=== PATIENT | female | born 1980 | race Caucasian/White ===

== ENCOUNTER 2017-04-26 13:19 | Inpatient (IN) | payer BC ==
[2017-04-26] MEDS ORDERED: Ondansetron 4 MG/2 ML SDV IVPUSH PRN ×2 (13:54→20:48)
[2017-04-26] MEDS ORDERED: Sodium Chloride 0.9% 10 ML Syringe FLUSH PRN (13:54)
[2017-04-26] MEDS: Lactated Ringers 1,000 ML IV SCH ×4 (14:22→19:29)
--- NOTE | 2017-04-26 15:00 | PCM.SN ---
- Free Text/Narrative Note: 1500 S:
[2017-04-26] MEDS ORDERED: Acetaminophen 325 MG Tab PO PRN ×2 (16:58→21:27)
[2017-04-26] MEDS ORDERED: Calcium Carbonate 500 MG Tab.Chew PO PRN (17:02)
[2017-04-26] MEDS ORDERED: Metoclopramide 10 MG/2 ML SDV IVPUSH ONE (18:48)
[2017-04-26] MEDS ORDERED: Citric Acid/Sodium Citrate Solution 30 ML Cup PO ONE (18:48)
[2017-04-26] MEDS ORDERED: ceFAZolin 2 GM in Premix Bag 1 BAG IV ONE (18:48)
--- NOTE | 2017-04-26 18:59 | PCM.LDHP ---
L&D History of Present Illness - General Date of Service: 04/26/17 Admit Problem/Dx: Patient Status Order with Admit Dx/Problem 04/26/17 13:54 Patient Status [ADT] Routine 04/26/17 18:48 Patient Status [ADT] Routine Admission Diagnosis/Problem Admission Diagnosis/Problem Source of Information: Patient History Limitations: Reports: No Limitations - History of Present Illness Introduction:: Patient is a 36 y/o at 38 0/7 wks who presented to L&D with concerns of labor. Was seen in clinic earlier today due to complaints of diarrhea and abdominal pain. She also reported contractions which were painful. In clinic at 1330 was only found to be 1 cm dilated and 60% effaced, similar to previous clinic exam. Given degree of pain she was asked to present to L&D for further monitoring Pain Score: 8 - Related Data Allergies/Adverse Reactions: Allergies Allergy/AdvReac Type Severity Reaction Status Date / Time acetaminophen Allergy Hives Verified 04/26/17 13:54 [From Darvocet-N] hydrocodone Allergy Hives Verified 04/26/17 13:54 meperidine HCl [From Demerol] Allergy Hives Verified 04/26/17 13:54 propoxyphene napsylate Allergy Hives Verified 04/26/17 13:54 [From Darvocet-N] Home Medications: Home Meds Budesonide [Pulmicort] 3 puff INH DAILY 02/28/15 [History] Doxycycline [Vibramycin] 100 mg PO Q12HR #16 cap 02/28/15 [Rx] Past Medical History Respiratory History: Reports: Asthma 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: Reports: Polycystic 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, , Spontaneous : 4 Para: 1 LMP (Approximate): - Past Surgical History HEENT Surgical History: Reports: Tonsillectomy GI Surgical History: Reports: Appendectomy Female Surgical History: Reports: Breast Biopsy, Section, D&C, Other (See Below) (Diagnostic laparoscopy) Social & Family History - Family History Family Medical History: Noncontributory - Tobacco Use Smoking Status *Q: Never Smoker - Alcohol Use Alcohol Use History: No - Recreational Drug Use Recreational Drug Use: No H&P Review of Systems - Review of Systems: Review Of Systems: See Below General: Reports: No Symptoms Pulmonary: Reports: No Symptoms Cardiovascular: Reports: No Symptoms Gastrointestinal: Reports: Abdominal Pain, Diarrhea Genitourinary: Reports: No Symptoms Musculoskeletal: Reports: No Symptoms L&D Exam - Exam Exam: See Below - Vital Signs Vital Signs: Last Vital Signs Temp 36.8 C 04/26/17 16:36 Pulse 86 04/26/17 16:36 Resp 16 04/26/17 16:36 BP 116/71 04/26/17 16:36 Pulse Ox Weight: 74.843 kg - OB Specific Contraction Intensity: Moderate Movement: Active Heart Tones: Present Heart Tones per Min: 135 Heart Rate (FHR) Variability: Moderate (6-25 bmp) Presentation: Vertex - Mahan Score Mahan Score Cervix Position: Midposition Mahan Score Consistency: Soft Mahan Score Effacement: 51-70% Mahan Score Dilation: 1-2 cm Mahan Score 's Station: -2 Mahan Score Total: 7 - Exam General: Alert, Oriented, Cooperative Lungs: Clear to Auscultation, Normal Respiratory Effort Cardiovascular: Regular Rate, Regular Rhythm GI/Abdominal Exam: Soft, Non-Tender Genitourinary: Normal external exam Extremities: Normal Inspection Skin: Warm, Dry, Intact - Problem List (1) 38 weeks gestation of SNOMED Code(s): 21511716 ICD Code: Z3A.38 - 38 WEEKS GESTATION OF Status: Acute Current Visit: Yes (2) History of SNOMED Code(s): 347637298 ICD Code: Z98.891 - HISTORY OF UTERINE SCAR FROM PREVIOUS SURGERY Status: Acute Current Visit: Yes (3) Normal labor SNOMED Code(s): 32251904 ICD Code: O80 - ENCOUNTER FOR FULL-TERM UNCOMPLICATED DELIVERY; Z37.9 - OUTCOME OF DELIVERY, UNSPECIFIED Status: Acute Current Visit: Yes Problem List Initiated/Reviewed/Updated: Yes Orders Last 24hrs: Active Orders 24 hr Category Date Time Status Patient Status [ADT] Routine ADT 04/26/17 13:54 Active Patient Status [ADT] Routine ADT 04/26/17 18:48 Ordered Communication Order [RC] ROUTINE Care 04/26/17 18:48 Ordered Heart Tones [RC] PER UNIT ROUTINE Care 04/26/17 18:48 Ordered Non Stress Test [RC] PER UNIT ROUTINE Care 04/26/17 13:54 Active Peripheral IV Care [RC] . DIRECTED Care 04/26/17 13:56 Active Procedure Site Prep Instruct [RC] ASDIRECTED Care 04/26/17 18:48 Ordered Verify Patient Consent Obtain [RC] PER UNIT ROUTINE Care 04/26/17 18:48 Ordered Vital Signs [RC] PER UNIT ROUTINE Care 04/26/17 13:54 Active Vital Signs [RC] PFP Care 04/26/17 18:48 Ordered Nothing Per Oral Diet [DIET] Diet 04/26/17 Dinner Ordered CBC W/O DIFF,HEMOGRAM [HEME] Stat Lab 04/26/17 18:48 Ordered TYPE AND SCREEN [BBK] Routine Lab 04/26/17 18:48 Ordered Acetaminophen [Tylenol] Med 04/26/17 16:58 Active 650 mg PO Q6H PRN Calcium Carbonate [Tums] Med 04/26/17 17:02 Active 500 mg PO Q2HR PRN Lactated Ringers [Ringers, Lactated] 1,000 ml Med 04/26/17 14:00 Active IV .BOLUS Ondansetron [Zofran] Med 04/26/17 13:54 Active 4 mg IVPUSH Q4H PRN Oxytocin/Lactated Ringers [Pitocin in LR 10 Units/1,000 Med 04/26/17 19:00 Ordered ML] 10 unit in 1,000 ml IV ASDIRECTED Sodium Chloride 0.9% [Saline Flush] Med 04/26/17 13:54 Active 10 ml FLUSH ASDIRECTED PRN ceFAZolin [Ancef] 2 gm Med 04/26/17 18:48 Ordered Premix Bag 1 bag IV ONETIME Peripheral IV Insertion Adult [OM.PC] Urgent Oth 04/26/17 13:54 Ordered Schedule Procedure [COMM] Per Unit Routine Oth 04/26/17 18:48 Ordered Resuscitation Status Routine Resus Stat 04/26/17 13:54 Ordered Medication Orders Acetaminophen (Tylenol) 650 mg PO Q6H PRN PRN Reason: Pain Last Admin: 04/26/17 17:23 Dose: 650 mg Calcium Carbonate/Glycine (Tums) 500 mg PO Q2HR PRN PRN Reason: Indigestion Last Admin: 04/26/17 17:23 Dose: 500 mg Lactated Ringer's (Ringers, Lactated) 1,000 mls @ 500 mls/hr IV .BOLUS TAMIKO Last Admin: 04/26/17 18:49 Dose: 125 mls/hr Infusion: 04/26/17 18:49 Dose: 125 mls/hr Infusion: 04/26/17 15:39 Dose: 125 mls/hr Admin: 04/26/17 15:37 Dose: 500 mls/hr Infusion: 04/26/17 15:37 Dose: 500 mls/hr Admin: 04/26/17 14:22 Dose: 500 mls/hr Cefazolin Sodium/Dextrose 2 gm (/ Premix) 50 mls @ 100 mls/hr IV ONETIME ONE Stop: 04/26/17 19:17 Oxytocin/Lactated Ringer's (Pitocin In Lr 10 Units/1,000 Ml) 10 unit in 1,000 mls @ 100 mls/hr IV ASDIRECTED TAMIKO PRN Reason: Protocol Ondansetron HCl (Zofran) 4 mg IVPUSH Q4H PRN PRN Reason: Nausea/Vomiting Last Admin: 04/26/17 14:18 Dose: 4 mg Sodium Chloride (Saline Flush) 10 ml FLUSH ASDIRECTED PRN PRN Reason: Keep Vein Open Assessment/Plan Comment:: 36 y/o at 38 0/7 wks presents for concerns of labor/diarrhea. Given 2L of IVF and zofran. Repeat SVE done at 1630 and similar to clinic exam at 1330. Offered trial of tub, tylenol, and plan additional 1L of IVF. Will reassess in a few hours. At 1830 nursing noted contractions becoming more regular and patterned. Patient also with more pain. Exam done with small amount of change noted. Now 2 cm and 80% effaced. Offered and encouraged patient to consider trial of labor given last was for breech, but she declines. Prefers repeat c- section. Anesthesia and Peds notified. CBC and T&S. Consent reviewed and signed.
[2017-04-26] MEDS ORDERED: Oxytocin/Lactated Ringers 10 UNIT/1,000 ML BAG IV SCH (19:00)
--- NOTE | 2017-04-26 19:02 | PCM.OPNOTE ---
- General Post-Op/Procedure Note Date of Surgery/Procedure: 04/26/17 Operative Procedure(s): Repeat Findings: Minimal/moderate amount of scar tissue between the rectus muscle and fascia. Similar amount of scar tissue between the uterus and the bladder. Baby boy in vertex presentation with APGARS of 8 & 8. Weight of 7 lbs 0 oz. Normal appearance of the uterus, fallopian tubes, and ovaries. Pre Op Diagnosis: 38 weeks gestation. Hx of . Labor. Declines trial of labor after Post-Op Diagnosis: Same Anesthesia Technique: Spinal Primary Surgeon: Mirta Pedro Secondary Surgeon: Seamus Manuel Anesthesia Provider: Rufino Darby Reason Turntable Man Was Necessary: Retraction, visualization, speed/safety of procedure Pathology: Cord blood collected. Placenta discarded Fluid Replacement, Intraop: 1,200 Output, Urine Amount: 100 EBL in mLs: 700 Complications: None Condition: Good Free Text/Narrative:: The risks, benefits, indications, potential complications, and alternatives were explained to the patient and informed consent obtained. After induction of anesthesia, the patient was placed in a supine position and then draped and prepped in the usual sterile manner. A Pfannenstiel incision was made and carried down through the subcutaneous tissue to the fascia. Fascial incision was made and extended transversely. The fascia was from the underlying rectus tissue superiorly and inferiorly. The peritoneum was identified and entered. Peritoneal incision was extended longitudinally. The utero-vesical peritoneal reflection was incised transversely and the bladder flap was bluntly freed from the lower uterine segment. A low transverse uterine incision was made sharply with a scalpel and extended bluntly in a cephalocaudad direction. A baby boy was delivered from a vertex presentation with APGARS as above. After the umbilical cord was clamped and cut cord blood was obtained for evaluation. The placenta was removed intact and appeared normal. The uterus was exteriorized and cleared of clots. The uterine outline, tubes and ovaries appeared normal. The uterine incision was closed with running locked sutures of 0 Vicryl. Hemostasis was obtained with a second imbricating layer of 0 vicryl. The uterus was then placed back into the abdomen. The infracolic gutters were cleared of blood clots. The fascia was then reapproximated with running sutures of 0 Vicryl. The sucutaneous tissue was irrigated with sterile warm normal saline, hemostasis obtained with cautery. This layer was also closed with a running 0 vicryl. The skin was reapproximated with running Subcuticular 4-0 monocryl sutures. Instrument, sponge, and needle counts were correct prior the abdominal closure and at the conclusion of the case.
[2017-04-26] MEDS ORDERED: Pneumococcal Polyvalent-23 Vaccine 0.5 ML SDV SUBCUT ONE (19:12)
[2017-04-26] MEDS ORDERED: Morphine PF 10 MG/10 ML SDV ONE (19:15)
[2017-04-26] MEDS ORDERED: Oxytocin 10 Units/1 ML SDV ONE (19:15)
[2017-04-26] MEDS ORDERED: Ondansetron 4 MG/2 ML SDV ONE (19:15)
--- NOTE | 2017-04-26 19:18 | PCM.PREANE ---
Preanesthetic Assessment - Procedure Proposed Procedure: Repeat - Anesthesia/Transfusion/Family Hx Anesthesia History: Prior Anesthesia Reaction Type of Anesthesia Reaction: Excessive Nausea/Vomiting Family History of Anesthesia Reaction: No Transfusion History: No Prior Transfusion(s) Intubation History: Unknown - Review of Systems General: No Symptoms Pulmonary: Other (asthma ) Cardiovascular: No Symptoms Gastrointestinal: No Symptoms Neurological: No Symptoms Other: Reports: None - Physical Assessment NPO Status Date: 04/26/17 NPO Status Time: 08:00 Pulse: 86 Respiratory Rate: 16 Blood Pressure: 116/71 Temperature: 36.8 C Vital Signs: Last Vital Signs Temp 36.8 C 04/26/17 16:36 Pulse 86 04/26/17 16:36 Resp 16 04/26/17 16:36 BP 116/71 04/26/17 16:36 Pulse Ox Height: 1.63 m Weight: 74.843 kg ASA Class: 2 Mental Status: Alert & Oriented x3 Airway Class: Mallampati = 1 Dentition: Reports: Normal Dentition Thyro-Mental Finger Breadths: 3 Mouth Opening Finger Breadths: 3 ROM/Head Extension: Full Lungs: Clear to Auscultation, Normal Respiratory Effort Cardiovascular: Regular Rate, Regular Rhythm - Allergies Allergies/Adverse Reactions: Allergies Allergy/AdvReac Type Severity Reaction Status Date / Time acetaminophen Allergy Hives Verified 04/26/17 13:54 [From Darvocet-N] hydrocodone Allergy Hives Verified 04/26/17 13:54 meperidine HCl [From Demerol] Allergy Hives Verified 04/26/17 13:54 propoxyphene napsylate Allergy Hives Verified 04/26/17 13:54 [From Darvocet-N] - Blood Blood Available: No Product(s) Available: None - Anesthesia Plan Pre-Op Medication Ordered: None - Acknowledgements Anesthesia Type Planned: Spinal (with duramorph- patient agrees despite allergies ) Pt an Appropriate Candidate for the Planned Anesthesia: Yes Alternatives and Risks of Anesthesia Discussed w Pt/Guardian: Yes Pt/Guardian Understands and Agrees with Anesthesia Plan: Yes PreAnesthesia Questionnaire Respiratory History: Reports: Asthma 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, , Spontaneous Other OB/BYN History: D&C - Past Surgical History HEENT Surgical History: Reports: Tonsillectomy GI Surgical History: Reports: Appendectomy Female Surgical History: Reports: Breast Biopsy, Section, D&C, Other (See Below) (Diagnostic laparoscopy) - SUBSTANCE USE Smoking Status *Q: Never Smoker Tobacco Use Within Last Twelve Months: No Second Hand Smoke Exposure: No Recreational Drug Use History: No - HOME MEDS Home Medications: Home Meds Budesonide [Pulmicort] 3 puff INH DAILY 02/28/15 [History] Doxycycline [Vibramycin] 100 mg PO Q12HR #16 cap 02/28/15 [Rx] - CURRENT (IN HOUSE) MEDS Current Meds: Current Medications Acetaminophen (Tylenol) 650 mg PO Q6H PRN PRN Reason: Pain Last Admin: 04/26/17 17:23 Dose: 650 mg Calcium Carbonate/Glycine (Tums) 500 mg PO Q2HR PRN PRN Reason: Indigestion Last Admin: 04/26/17 17:23 Dose: 500 mg Lactated Ringer's (Ringers, Lactated) 1,000 mls @ 500 mls/hr IV .BOLUS TAMIKO Last Admin: 04/26/17 18:49 Dose: 125 mls/hr Cefazolin Sodium/Dextrose 2 gm (/ Premix) 50 mls @ 100 mls/hr IV ONETIME ONE Stop: 04/26/17 19:17 Oxytocin/Lactated Ringer's (Pitocin In Lr 10 Units/1,000 Ml) 10 unit in 1,000 mls @ 100 mls/hr IV ASDIRECTED TAMIKO PRN Reason: Protocol Ondansetron HCl (Zofran) 4 mg IVPUSH Q4H PRN PRN Reason: Nausea/Vomiting Last Admin: 04/26/17 14:18 Dose: 4 mg Sodium Chloride (Saline Flush) 10 ml FLUSH ASDIRECTED PRN PRN Reason: Keep Vein Open Discontinued Medications Citric Acid/Sodium Citrate (Bicitra Solution) 30 ml PO ONETIME ONE Stop: 04/26/17 18:49 Metoclopramide HCl (Reglan) 10 mg IVPUSH ONETIME ONE Stop: 04/26/17 18:49 Morphine Sulfate (Duramorph Pf) Confirm Administered Dose 10 mg .ROUTE .STK-MED ONE Stop: 04/26/17 19:16 Ondansetron HCl (Zofran) Confirm Administered Dose 4 mg .ROUTE .STK-MED ONE Stop: 04/26/17 19:16 Oxytocin (Pitocin) Confirm Administered Dose 10 unit .ROUTE .[facility] ONE Stop: 04/26/17 19:16
[2017-04-26] MEDS ORDERED: Lactated Ringers 1,000 ML ONE (19:24)
[2017-04-26] MEDS ORDERED: Lactated Ringers 1,000 ML IV SCH (19:30)
[2017-04-26] MEDS ORDERED: Ketorolac 30 MG/ML SDV ONE (20:41)
--- NOTE | 2017-04-26 20:47 | PCM.POSTAN ---
POST ANESTHESIA ASSESSMENT - MENTAL STATUS Mental Status: Alert, Oriented - VITAL SIGNS Pulse Rate: 83 SaO2: 97 Resp Rate: 11 Blood Pressure: 102/61 Temperature: 36.4 C - RESPIRATORY Respiratory Status: Respiratory Rate WNL, Airway Patent, O2 Saturation Stable - CARDIOVASCULAR CV Status: Pulse Rate WNL, Blood Pressure Stable - GASTROINTESTINAL GI Status: No Symptoms - PAIN Pain Score: 0 - POST OP HYDRATION Hydration Status: Adequate & Stable
[2017-04-26] MEDS ORDERED: diphenhydrAMINE 50 MG/ML SDV IVPUSH PRN ×2 (20:48→21:27)
[2017-04-26] MEDS ORDERED: fentaNYL 100 MCG/2 ML SDV IVPUSH PRN (20:48)
[2017-04-26] MEDS ORDERED: ePHEDrine 50 MG/ML SDV IVPUSH PRN (21:27)
[2017-04-26] MEDS ORDERED: Naloxone 0.4 MG/ML SDV IVPUSH PRN (21:27)
[2017-04-26] MEDS ORDERED: Ondansetron 4 MG Tab.DIS PO PRN (21:27)
[2017-04-26] MEDS ORDERED: Docusate Sodium 100 MG Cap PO PRN (21:27)
[2017-04-26] MEDS ORDERED: Dextrose 5%-Lactated Ringers 1,000 ML IV SCH (21:27)
[2017-04-26] MEDS ORDERED: Lanolin 100% Cream 7 GM Tube TOP PRN (21:27)
[2017-04-26] MEDS ORDERED: HYDROmorphone 2 MG Tab PO PRN (21:27)
[2017-04-27] MEDS ORDERED: Ketorolac 30 MG/ML SDV ONE (00:57)
[2017-04-27] MEDS: Ketorolac 30 MG/ML SDV IVPUSH SCH ×3 (02:33→15:51)
--- NOTE | 2017-04-27 06:42 | PCM.PNPP ---
- General Info Date of Service: 04/27/17 Functional Status: Reports: Pain Controlled, Tolerating Diet, Ambulating - Review of Systems General: Reports: No Symptoms Pulmonary: Reports: No Symptoms Cardiovascular: Reports: No Symptoms Gastrointestinal: Reports: Abdominal Pain (manageable) Genitourinary: Reports: No Symptoms Musculoskeletal: Reports: No Symptoms Skin: Reports: Pruritis Neurological: Reports: No Symptoms - Patient Data Vital Signs - Most Recent: Last Vital Signs Temp 36.6 C 04/27/17 04:19 Pulse 73 04/27/17 04:19 Resp 16 04/27/17 04:19 BP 102/57 L 04/27/17 04:19 Pulse Ox 98 04/27/17 04:19 Weight - Most Recent: 74.843 kg I&O - Last 24 Hours: Intake & Output 04/26/17 04/26/17 04/27/17 14:59 22:59 06:59 Intake Total 400 1200 Output Total 600 700 Balance -200 500 Lab Results - Last 24 Hours: Laboratory Results - last 24 hr 04/26/17 04/26/17 04/27/17 Range/Units 19:20 19:20 06:18 WBC 13.22 H 10.20 H (3.98-10.04) K/mm3 RBC 3.86 L 3.29 L (3.98-5.22) M/mm3 Hgb 11.8 10.1 L (11.2-15.7) gm/L Hct 34.9 30.0 L (34.1-44.9) % MCV 90.4 91.2 (79.4-94.8) fl MCH 30.6 30.7 (25.6-32.2) pg MCHC 33.8 33.7 (32.2-35.5) g/dl RDW Std Deviation 42.1 41.8 (36.4-46.3) fL Plt Count 249 203 (182-369) K/mm3 MPV 9.8 9.4 (9.4-12.3) fl Blood Type AB POSITIVE Gel Antibody Screen Negative Med Orders - Current: Current Medications Acetaminophen (Tylenol) 650 mg PO Q4H PRN PRN Reason: mild pain or fever Diphenhydramine HCl (Benadryl) 25 mg IVPUSH Q6H PRN PRN Reason: Pruritis Last Admin: 04/27/17 01:11 Dose: 25 mg Diphenhydramine HCl (Benadryl) 25 mg IVPUSH Q6H PRN PRN Reason: Itching or Nausea Docusate Sodium (Colace) 100 mg PO Q12H PRN PRN Reason: Constipation Emollient Ointment (Lansinoh Hpa) 0 gm TOP ASDIRECTED PRN PRN Reason: Sore Nipples Ephedrine Sulfate (Ephedrine Sulfate) 5 mg IVPUSH SEECOMMENT PRN PRN Reason: Other Fentanyl (Sublimaze) 50 mcg IVPUSH Q5M PRN PRN Reason: Pain Hydromorphone HCl (Dilaudid) 1 - 2 mg PO Q4H PRN PRN Reason: Pain Ibuprofen (Motrin) 600 mg PO Q6H PRN PRN Reason: mild pain or fever Ketorolac Tromethamine (Toradol) 30 mg IVPUSH Q6H TAMIKO Stop: 04/27/17 14:31 Last Admin: 04/27/17 02:33 Dose: 30 mg Naloxone HCl (Narcan) 0.1 mg IVPUSH SEECOMMENT PRN PRN Reason: Respiratory Depression Ondansetron HCl (Zofran) 4 mg IVPUSH ONETIME PRN PRN Reason: Nausea/Vomiting Ondansetron HCl (Zofran Odt) 4 mg PO Q4H PRN PRN Reason: Nausea/Vomiting Pneumococcal Polyvalent Vaccine (Pneumovax 23) 0.5 ml SUBCUT .ONCE ONE Stop: 04/27/17 08:01 Discontinued Medications Acetaminophen (Tylenol) 650 mg PO Q6H PRN PRN Reason: Pain Last Admin: 04/26/17 17:23 Dose: 650 mg Calcium Carbonate/Glycine (Tums) 500 mg PO Q2HR PRN PRN Reason: Indigestion Last Admin: 04/26/17 17:23 Dose: 500 mg Citric Acid/Sodium Citrate (Bicitra Solution) 30 ml PO ONETIME ONE Stop: 04/26/17 18:49 Last Admin: 04/26/17 19:18 Dose: 30 ml Lactated Ringer's (Ringers, Lactated) 1,000 mls @ 500 mls/hr IV .BOLUS TAMIKO Last Admin: 04/26/17 19:29 Dose: 125 mls/hr Cefazolin Sodium/Dextrose 2 gm (/ Premix) 50 mls @ 100 mls/hr IV ONETIME ONE Stop: 04/26/17 19:17 Last Admin: 04/27/17 03:18 Dose: Not Given Oxytocin/Lactated Ringer's (Pitocin In Lr 10 Units/1,000 Ml) 10 unit in 1,000 mls @ 100 mls/hr IV ASDIRECTED [facility] PRN Reason: Protocol Lactated Ringer's (Ringers, Lactated) Confirm Administered Dose 1,000 mls @ as directed .ROUTE .STK-MED ONE Stop: 04/26/17 19:25 Last Admin: 04/27/17 03:19 Dose: Not Given Lactated Ringer's (Ringers, Lactated) 1,000 mls @ 125 mls/hr IV ASDIRECTED [facility] Dextrose/Lactated Ringer's (Dextrose 5%-Lactated Ringers) 1,000 mls @ 125 mls/ hr IV ASDIRECTED [facility] Stop: 04/27/17 05:26 Last Admin: 04/26/17 23:17 Dose: 125 mls/hr Ibuprofen (Motrin) 600 mg PO Q6H PRN PRN Reason: mild pain or fever Ketorolac Tromethamine (Toradol) Confirm Administered Dose 30 mg .ROUTE .STK- MED ONE Stop: 04/26/17 20:42 Ketorolac Tromethamine (Toradol) 30 mg IVPUSH Q6H [facility] Stop: 04/28/17 02:31 Ketorolac Tromethamine (Toradol) Confirm Administered Dose 30 mg .ROUTE .STK- MED ONE Stop: 04/27/17 00:58 Last Admin: 04/27/17 01:09 Dose: Not Given Metoclopramide HCl (Reglan) 10 mg IVPUSH ONETIME ONE Stop: 04/26/17 18:49 Last Admin: 04/26/17 19:18 Dose: 10 mg Morphine Sulfate (Duramorph Pf) Confirm Administered Dose 10 mg .ROUTE .STK-MED ONE Stop: 04/26/17 19:16 Ondansetron HCl (Zofran) 4 mg IVPUSH Q4H PRN PRN Reason: Nausea/Vomiting Last Admin: 04/26/17 14:18 Dose: 4 mg Ondansetron HCl (Zofran) Confirm Administered Dose 4 mg .ROUTE .STK-MED ONE Stop: 04/26/17 19:16 Oxytocin (Pitocin) Confirm Administered Dose 10 unit .ROUTE .STK-MED ONE Stop: 04/26/17 19:16 Pneumococcal Polyvalent Vaccine (Pneumovax 23) 0.5 ml SUBCUT .ONCE ONE Stop: 04/26/17 19:13 Last Admin: 04/27/17 03:19 Dose: Not Given Sodium Chloride (Saline Flush) 10 ml FLUSH ASDIRECTED PRN PRN Reason: Keep Vein Open - Interaction Infant Disposition, : in Room with Family Interaction: Holding Infant Infant Feeding: Breastfed Infant; Nursed Well Support Person: - Recovery Exam Fundal Tone: Firm Fundal Level: At Umbilicus Fundal Placement: Midline Lochia Amount: Small Lochia Color: Rubra/Red Perineum Description: Intact, Minimal Bruising/Swelling Urinary Elimination: Indwelling Catheter - Exam General: Alert, Oriented, Cooperative Lungs: Clear to Auscultation, Normal Respiratory Effort Cardiovascular: Regular Rate, Regular Rhythm GI/Abdominal Exam: Soft, Tender (appropriate post op) Extremities: Normal Inspection Skin: Warm, Dry, Intact Wound/Incisions: Drainage (drainage on dressing - incision c/d/i. Dressing replaced) - Problem List & Annotations (1) 38 weeks gestation of SNOMED Code(s): 69994513 Code(s): Z3A.38 - 38 WEEKS GESTATION OF Status: Acute Current Visit: Yes (2) History of SNOMED Code(s): 668690799 Code(s): Z98.891 - HISTORY OF UTERINE SCAR FROM PREVIOUS SURGERY Status: Acute Current Visit: Yes (3) Normal labor SNOMED Code(s): 46088160 Code(s): O80 - ENCOUNTER FOR FULL-TERM UNCOMPLICATED DELIVERY; Z37.9 - OUTCOME OF DELIVERY, UNSPECIFIED Status: Acute Current Visit: Yes (4) S/P repeat low transverse SNOMED Code(s): 361984234, 769293967, 476979635 Code(s): Z98.891 - HISTORY OF UTERINE SCAR FROM PREVIOUS SURGERY Status: Acute Current Visit: Yes - Problem List Review Problem List Initiated/Reviewed/Updated: Yes - My Orders Last 24 Hours: My Active Orders 04/26/17 13:54 Vital Signs [RC] PER UNIT ROUTINE Resuscitation Status Routine 04/26/17 13:56 Peripheral IV Care [RC] . DIRECTED 04/26/17 18:48 Vital Signs [RC] PFP 04/26/17 21:27 Activity as Tolerated [RC] .Routine Antiembolic Devices [RC] .PRN Communication Order [RC] PER UNIT ROUTINE Intake and Output [RC] Q4HR May Shower [RC] .PRN Notify Provider Intake and Out [RC] ASDIRECTED RT Incentive Spirometry [RC] Q2HWA Acetaminophen [Tylenol] 650 mg PO Q4H PRN Docusate Sodium [Colace] 100 mg PO Q12H PRN HYDROmorphone [Dilaudid] 1 - 2 mg PO Q4H PRN Lanolin [Lansinoh HPA] See Dose Instructions TOP ASDIRECTED PRN Naloxone [Narcan] 0.1 mg IVPUSH SEECOMMENT PRN Ondansetron [Zofran ODT] 4 mg PO Q4H PRN diphenhydrAMINE [Benadryl] 25 mg IVPUSH Q6H PRN ePHEDrine [ePHEDrine Sulfate] 5 mg IVPUSH SEECOMMENT PRN Assess Lochia [WOMSER] Per Unit Routine Assess Uterine Involution [WOMSER] Per Unit Routine Breast Pump [WOMSER] Per Unit Routine Heat Therapy [OM.PC] Per Unit Routine Peripheral IV Discontinue [OM.PC] Routine Sequential Compression Device [OM.PC] Per Unit Routine 04/26/17 Dinner Regular Diet [DIET] 04/27/17 02:30 Ketorolac [Toradol] 30 mg IVPUSH Q6H 04/27/17 08:00 Pneumococcal Polyvalent-23 Vac [Pneumovax 23] 0.5 ml SUBCUT .ONCE ONE 04/27/17 20:30 Ibuprofen [Motrin] 600 mg PO Q6H PRN 04/27/17 20:42 Urinary Catheter Removal [RC] Per Unit Routine - Assessment Assessment:: 36 y/o G4 now P2022 POD#1 from [facility] at 38 0/7 wks after onset of labor - Plan Plan:: [facility] * Routine cares * Encourage breast feeding * CBC today * Discharge home in 1-2 days
[2017-04-27] MEDS ORDERED: Pneumococcal Polyvalent-23 Vaccine 0.5 ML SDV SUBCUT ONE (08:00)
--- NOTE | 2017-04-27 10:26 | PCM48HPAN ---
Post Anesthesia Note - EVALUATION WITHIN 48HRS OF ANESTHETIC Vital Signs in Normal Range: Yes Patient Participated in Evaluation: Yes Respiratory Function Stable: Yes Airway Patent: Yes Cardiovascular Function Stable: Yes Hydration Status Stable: Yes Pain Control Satisfactory: Yes Nausea and Vomiting Control Satisfactory: Yes Mental Status Recovered: Yes
[2017-04-27] MEDS ORDERED: Ketorolac 30 MG/ML SDV IVPUSH SCH (14:30)
[2017-04-27] MEDS: Ibuprofen 600 MG Tab PO PRN (21:49)
[2017-04-28] MEDS: Ibuprofen 600 MG Tab PO PRN ×3 (05:59→20:43)
[2017-04-28] MEDS ORDERED: Ibuprofen 600 MG Tab PO PRN (09:00)
[2017-04-29] MEDS: Ibuprofen 600 MG Tab PO PRN (06:00)
[2017-04-29 11:29] VITALS: BP 120/73
--- NOTE | 2017-05-15 09:08 | PCM.DCSUM1 ---
Discharge Summary - Discharge Data Discharge Date: 04/29/17 Discharge Disposition: Home, Self-Care 01 Condition: Good - Patient Summary/Data Operative Procedure(s) Performed: Repeat - Patient Instructions Diet: Usual Diet as Tolerated Activity: No Lifting Over 10 Pounds, No Strenuous Activities Driving: Do Not Drive Showering/Bathing: May Shower, No Tub Bathing/Swimming Wound/Incision Care: Keep Operative Site/Wound Site Clean and Dry Notify Provider of: Fever, Increased Pain, Swelling and Redness, Drainage, Nausea and/or Vomiting Other/Special Instructions: pelvic rest - Discharge Plan Prescriptions/Med Rec: Ketorolac [Toradol] 10 mg PO Q6H #1 tablet Home Medications: Home Meds Acetaminophen [Tylenol] 650 mg PO Q4H PRN tablet 04/29/17 [Rx] Docusate Sodium [Colace] 100 mg PO Q12H PRN #1 cap 04/29/17 [Rx] Ibuprofen [IJD: Ibuprofen] 600 mg PO Q6H PRN #1 tablet 04/29/17 [Rx] Ketorolac [Toradol] 10 mg PO Q6H #1 tablet 04/29/17 [Rx] Lanolin [Lansinoh HPA] 1 applic TOP ASDIRECTED PRN tube 04/29/17 [Rx] Patient Handouts: Exclusive , Delivery, Care After, Home Care Instructions for Mom Referrals: Mirta Pedro MD [Physician] - - Discharge Summary/Plan Comment DC Time >30 min.: No - General Info Date of Service: 04/29/17 Functional Status: Reports: Pain Controlled - Review of Systems General: Reports: No Symptoms HEENT: Reports: No Symptoms Pulmonary: Reports: No Symptoms Cardiovascular: Reports: No Symptoms Gastrointestinal: Reports: No Symptoms Genitourinary: Reports: No Symptoms Musculoskeletal: Reports: No Symptoms Skin: Reports: No Symptoms Neurological: Reports: No Symptoms Psychiatric: Reports: No Symptoms - Patient Data Vitals - Most Recent: Last Vital Signs Temp 36.8 C 04/29/17 09:44 Pulse 88 04/29/17 09:44 Resp 16 04/29/17 09:44 BP 120/73 04/29/17 09:44 Pulse Ox 98 04/29/17 09:44 Weight - Most Recent: 74.843 kg Med Orders - Current: Current Medications Discontinued Medications Acetaminophen (Tylenol) 650 mg PO Q6H PRN PRN Reason: Pain Last Admin: 04/26/17 17:23 Dose: 650 mg Acetaminophen (Tylenol) 650 mg PO Q4H PRN PRN Reason: mild pain or fever Last Admin: 04/29/17 00:10 Dose: 650 mg Calcium Carbonate/Glycine (Tums) 500 mg PO Q2HR PRN PRN Reason: Indigestion Last Admin: 04/26/17 17:23 Dose: 500 mg Citric Acid/Sodium Citrate (Bicitra Solution) 30 ml PO ONETIME ONE Stop: 04/26/17 18:49 Last Admin: 04/26/17 19:18 Dose: 30 ml Diphenhydramine HCl (Benadryl) 25 mg IVPUSH Q6H PRN PRN Reason: Pruritis Last Admin: 04/27/17 01:11 Dose: 25 mg Diphenhydramine HCl (Benadryl) 25 mg IVPUSH Q6H PRN PRN Reason: Itching or Nausea Docusate Sodium (Colace) 100 mg PO Q12H PRN PRN Reason: Constipation Emollient Ointment (Lansinoh Hpa) 0 gm TOP ASDIRECTED PRN PRN Reason: Sore Nipples Last Admin: 04/27/17 16:51 Dose: 1 tube Ephedrine Sulfate (Ephedrine Sulfate) 5 mg IVPUSH SEECOMMENT PRN PRN Reason: Other Fentanyl (Sublimaze) 50 mcg IVPUSH Q5M PRN PRN Reason: Pain Hydromorphone HCl (Dilaudid) 1 - 2 mg PO Q4H PRN PRN Reason: Pain Lactated Ringer's (Ringers, Lactated) 1,000 mls @ 500 mls/hr IV .[facility] Last Admin: 04/26/17 19:29 Dose: 125 mls/hr Cefazolin Sodium/Dextrose 2 gm (/ Premix) 50 mls @ 100 mls/hr IV ONETIME ONE Stop: 04/26/17 19:17 Last Admin: 04/27/17 03:18 Dose: Not Given Oxytocin/Lactated Ringer's (Pitocin In Lr 10 Units/1,000 Ml) 10 unit in 1,000 mls @ 100 mls/hr IV ASDIRECTED TAMIKO PRN Reason: Protocol Lactated Ringer's (Ringers, Lactated) Confirm Administered Dose 1,000 mls @ as directed .ROUTE .STK-MED ONE Stop: 04/26/17 19:25 Last Admin: 04/27/17 03:19 Dose: Not Given Lactated Ringer's (Ringers, Lactated) 1,000 mls @ 125 mls/hr IV ASDIRECTED [facility] Dextrose/Lactated Ringer's (Dextrose 5%-Lactated Ringers) 1,000 mls @ 125 mls/ hr IV ASDIRECTED [facility] Stop: 04/27/17 05:26 Last Admin: 04/26/17 23:17 Dose: 125 mls/hr Ibuprofen (Motrin) 600 mg PO Q6H PRN PRN Reason: mild pain or fever Ibuprofen (Motrin) 600 mg PO Q6H PRN PRN Reason: mild pain or fever Last Admin: 04/29/17 06:00 Dose: 600 mg Ketorolac Tromethamine (Toradol) Confirm Administered Dose 30 mg .ROUTE .[facility] ONE Stop: 04/26/17 20:42 Ketorolac Tromethamine (Toradol) 30 mg IVPUSH Q6H [facility] Stop: 04/28/17 02:31 Ketorolac Tromethamine (Toradol) Confirm Administered Dose 30 mg .ROUTE .[facility] ONE Stop: 04/27/17 00:58 Last Admin: 04/27/17 01:09 Dose: Not Given Ketorolac Tromethamine (Toradol) 30 mg IVPUSH Q6H [facility] Stop: 04/27/17 14:31 Last Admin: 04/27/17 15:51 Dose: 30 mg Metoclopramide HCl (Reglan) 10 mg IVPUSH ONETIME ONE Stop: 04/26/17 18:49 Last Admin: 04/26/17 19:18 Dose: 10 mg Morphine Sulfate (Duramorph Pf) Confirm Administered Dose 10 mg .ROUTE .STK-MED ONE Stop: 04/26/17 19:16 Naloxone HCl (Narcan) 0.1 mg IVPUSH SEECOMMENT PRN PRN Reason: Respiratory Depression Ondansetron HCl (Zofran) 4 mg IVPUSH Q4H PRN PRN Reason: Nausea/Vomiting Last Admin: 04/26/17 14:18 Dose: 4 mg Ondansetron HCl (Zofran) Confirm Administered Dose 4 mg .ROUTE .STK-MED ONE Stop: 04/26/17 19:16 Ondansetron HCl (Zofran) 4 mg IVPUSH ONETIME PRN PRN Reason: Nausea/Vomiting Ondansetron HCl (Zofran Odt) 4 mg PO Q4H PRN PRN Reason: Nausea/Vomiting Oxytocin (Pitocin) Confirm Administered Dose 10 unit .ROUTE .STK-MED ONE Stop: 04/26/17 19:16 Pneumococcal Polyvalent Vaccine (Pneumovax 23) 0.5 ml SUBCUT .ONCE ONE Stop: 04/26/17 19:13 Last Admin: 04/27/17 03:19 Dose: Not Given Pneumococcal Polyvalent Vaccine (Pneumovax 23) 0.5 ml SUBCUT .ONCE ONE Stop: 04/27/17 08:01 Sodium Chloride (Saline Flush) 10 ml FLUSH ASDIRECTED PRN PRN Reason: Keep Vein Open - Exam General: Reports: Alert, Oriented HEENT: Reports: Pupils Equal, Pupils Reactive, EOMI, Mucous Membr. Moist/[place] Neck: Reports: Supple Lungs: Reports: Clear to Auscultation, Normal Respiratory Effort Cardiovascular: Reports: Regular Rate, Regular Rhythm GI/Abdominal Exam: Normal Bowel Sounds, Soft, Non-Tender, No Organomegaly, No Distention, No Abnormal Bruit, No Mass, Pelvis Stable (Female) Exam: Normal External Exam, Normal Speculum Exam, Normal Bimanual Exam Back Exam: Reports: Normal Inspection, Full Range of Motion Extremities: Normal Inspection, Normal Range of Motion, Non-Tender, No Pedal Edema, Normal Capillary Refill Skin: Reports: Warm, Dry, Intact Wound/Incisions: Reports: Healing Well Neurological: Reports: No New Focal Deficit Psy/Mental Status: Reports: Alert, Normal Affect, Normal Mood *Q Meaningful Use (DIS) - VTE *Q VTE Criteria *Q: - Stroke *Q Stroke Criteria *Q: - AMI *Q AMI Criteria *Q:
== END 2017-04-29 11:00 | disposition home or self-care (01) | DRG 540 ==
LOC: JD.OBCHECK 13:19 → JD.OB 13:20 → JD.OBCHECK 13:20 → JD.OB 13:22 → JD.OBCHECK 13:22 → JD.OB 13:25 → UNDOADMOB 13:25 → INTOOBSV 18:48 → JD.OB 18:48 → JD.OBCHECK 18:48 → OBSVTOIN 18:48
PROVIDERS: ADMIT Obstetrics & Gynecology; ATTEND Obstetrics & Gynecology
PROC: 10D00Z1 Extraction of Products of Conception, Low, Open Approach (ICD-10-PCS; principal; 2017-04-26)
DX: O34.211 Maternal care for low transverse scar from previous cesarean delivery (principal); N85.8 Other specified noninflammatory disorders of uterus; Z3A.38 38 weeks gestation of pregnancy; Z37.0 Single live birth; Z88.6 Allergy status to analgesic agent; O99.52 Diseases of the respiratory system complicating childbirth; J45.909 Unspecified asthma, uncomplicated
CPT/HCPCS: 01961; 36415; 85027; 86850; 86900; 86901; A9270-GY; J1200; J1885; J2270; J2405; J2590; J2765; J7042; J7120

== ENCOUNTER 2018-10-24 18:14 | Inpatient (IN) | payer BC ==
[2018-10-24] MEDS ORDERED: Acetaminophen 325 MG Tab PO ONE (18:54)
[2018-10-24] MEDS ORDERED: Nalbuphine 20 MG/ML 1 ML Syringe IVPUSH PRN (19:46)
[2018-10-24] MEDS ORDERED: Citric Acid/Sodium Citrate Solution 30 ML Cup PO ONE (19:46)
[2018-10-24] MEDS ORDERED: Metoclopramide 10 MG/2 ML SDV IVPUSH ONE (19:46)
[2018-10-24] MEDS ORDERED: Sodium Chloride 0.9% 10 ML Syringe FLUSH PRN (19:46)
[2018-10-24] MEDS ORDERED: ceFAZolin 2 GM in Premix Bag 1 BAG IV ONE (19:46)
[2018-10-24] MEDS ORDERED: Oxytocin/Lactated Ringers 10 UNIT/1,000 ML BAG IV SCH (20:00)
[2018-10-24] MEDS ORDERED: Lactated Ringers 1,000 ML IV SCH (20:00)
--- NOTE | 2018-10-24 20:02 | PCM.LDHP ---
L&D History of Present Illness - General Date of Service: 10/24/18 Admit Problem/Dx: Patient Status Order with Admit Dx/Problem 10/24/18 18:45 Patient Status [ADT] Routine 10/24/18 19:46 Patient Status [ADT] Routine Admission Diagnosis/Problem Admission Diagnosis/Problem Source of Information: Patient History Limitations: Reports: No Limitations - History of Present Illness Introduction:: Patient is a 37 y/o at 38 5/7 wks who presents in early labor. Seen in clinic today for routine exam and noted some contraction like pain. Cervix at that time 1 cm dilated. Has been francy about every 3-5 minutes since seen. Having diarrhea. No other concerns. Pain Score: 5 - Related Data Allergies/Adverse Reactions: Allergies Allergy/AdvReac Type Severity Reaction Status Date / Time acetaminophen Allergy Hives Verified 10/24/18 18:30 [From Darvocet-N] hydrocodone Allergy Hives Verified 10/24/18 18:30 meperidine HCl [From Demerol] Allergy Hives Verified 10/24/18 18:30 propoxyphene napsylate Allergy Hives Verified 10/24/18 18:30 [From Darvocet-N] Home Medications: Home Meds Acetaminophen [Tylenol] 650 mg PO Q4H PRN tablet 04/29/17 [Rx] Docusate Sodium [Colace] 100 mg PO Q12H PRN #1 cap 04/29/17 [Rx] Ibuprofen [IJD: Ibuprofen] 600 mg PO Q6H PRN #1 tablet 04/29/17 [Rx] Ketorolac [Toradol] 10 mg PO Q6H #1 tablet 04/29/17 [Rx] Lanolin [Lansinoh HPA] 1 applic TOP ASDIRECTED PRN tube 04/29/17 [Rx] Past Medical History Respiratory History: Reports: Asthma Genitourinary History: Reports: Pyelonephritis, 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: 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 , Polycystic Ovaries, , Spontaneous : 5 Para: 2 LMP (Approximate): - Infectious Disease History Infectious Disease History: Reports: Shingles - Past Surgical History HEENT Surgical History: Reports: Tonsillectomy GI Surgical History: Reports: Appendectomy Female Surgical History: Reports: Breast Biopsy, Section (x2), D&C, Other (See Below) (Diagnostic laparoscopy) Social & Family History - Family History Family Medical History: Noncontributory - Tobacco Use Smoking Status *Q: Never Smoker - Caffeine Use Caffeine Use: Reports: None - Alcohol Use Alcohol Use History: No - Recreational Drug Use Recreational Drug Use: No H&P Review of Systems - Review of Systems: Review Of Systems: See Below General: Reports: No Symptoms Pulmonary: Reports: No Symptoms Cardiovascular: Reports: No Symptoms Gastrointestinal: Reports: Abdominal Pain, Diarrhea Genitourinary: Reports: No Symptoms Musculoskeletal: Reports: No Symptoms Psychiatric: Reports: No Symptoms Neurological: Reports: No Symptoms L&D Exam - Exam Exam: See Below - Vital Signs Vital Signs: Last Vital Signs Temp 37.4 C 10/24/18 18:30 Pulse 100 10/24/18 18:30 Resp 17 10/24/18 18:30 BP 119/74 10/24/18 18:30 Pulse Ox Weight: 75.75 kg - OB Specific Contraction Intensity: Mild to Moderate Movement: Active Heart Tones: Present Heart Tones per Min: 150 Heart Rate (FHR) Variability: Moderate (6-25 bmp) Presentation: Vertex - Mahan Score Mahan Score Cervix Position: Midposition Mahan Score Consistency: Soft Mahan Score Effacement: >80% Mahan Score Dilation: 1-2 cm Mahan Score Infant's Station: -1 ,0 Mahan Score Total: 9 - Exam General: Alert, Oriented, Cooperative Lungs: Clear to Auscultation, Normal Respiratory Effort Cardiovascular: Regular Rate, Regular Rhythm GI/Abdominal Exam: Soft, Non-Tender Genitourinary: Normal external exam Back Exam: Normal Inspection Extremities: Normal Inspection Skin: Warm, Dry, Intact - Problem List (1) 38 weeks gestation of SNOMED Code(s): 60799428 ICD Code: Z3A.38 - 38 WEEKS GESTATION OF Status: Acute Current Visit: No (2) History of SNOMED Code(s): 800296109 ICD Code: Z98.891 - HISTORY OF UTERINE SCAR FROM PREVIOUS SURGERY Status: Acute Current Visit: No (3) Normal labor SNOMED Code(s): 51790588 ICD Code: O80 - ENCOUNTER FOR FULL-TERM UNCOMPLICATED DELIVERY; Z37.9 - OUTCOME OF DELIVERY, UNSPECIFIED Status: Acute Current Visit: No Problem List Initiated/Reviewed/Updated: Yes Orders Last 24hrs: Active Orders 24 hr Category Date Time Status Patient Status [ADT] Routine ADT 10/24/18 18:45 Active Patient Status [ADT] Routine ADT 10/24/18 19:46 Ordered Communication Order [RC] ROUTINE Care 10/24/18 19:46 Ordered Heart Tones [RC] PER UNIT ROUTINE Care 10/24/18 19:46 Ordered Non Stress Test [RC] PER UNIT ROUTINE Care 10/24/18 18:45 Active Non Stress Test [RC] PER UNIT ROUTINE Care 10/24/18 19:46 Ordered Peripheral IV Care [RC] . DIRECTED Care 10/24/18 19:46 Ordered Procedure Site Prep Instruct [RC] ASDIRECTED Care 10/24/18 19:46 Ordered Vaginal Exam [RC] PRN Care 10/24/18 18:45 Active Verify Patient Consent Obtain [RC] PER UNIT ROUTINE Care 10/24/18 19:46 Ordered Vital Signs [RC] PER UNIT ROUTINE Care 10/24/18 18:45 Active Vital Signs [RC] PFP Care 10/24/18 19:46 Ordered CBC W/O DIFF,HEMOGRAM [HEME] Stat Lab 10/24/18 19:46 Ordered RAPID PLASMA REAGIN,RPR [CHEM] Routine Lab 10/24/18 19:46 Ordered TYPE AND SCREEN [BBK] Stat Lab 10/24/18 19:46 Ordered Citric Acid/Sodium Citrate [Bicitra Solution] Med 10/24/18 19:46 Once 30 ml PO ONETIME ONE Lactated Ringers @ 125 MLS/HR(1000ml) Med 10/24/18 20:00 Ordered Lactated Ringers [Ringers, Lactated] 1,000 ml IV ASDIRECTED Metoclopramide [Reglan] Med 10/24/18 19:46 Once 10 mg IVPUSH ONETIME ONE Nalbuphine [Nubain] Med 10/24/18 19:46 Ordered 10 mg IVPUSH Q2H PRN Oxytocin/Lactated Ringers [Pitocin in LR 10 Units/1,000 Med 10/24/18 20:00 Ordered ML] 10 unit in 1,000 ml IV ASDIRECTED Sodium Chloride 0.9% [Saline Flush] Med 10/24/18 19:46 Ordered 10 ml FLUSH ASDIRECTED PRN ceFAZolin [Ancef] 2 gm Med 10/24/18 19:46 Ordered Premix Bag 1 bag IV ONETIME Peripheral IV Insertion Adult [OM.PC] Routine Oth 10/24/18 19:46 Ordered Schedule Procedure [COMM] Per Unit Routine Oth 10/24/18 19:46 Ordered Resuscitation Status Routine Resus Stat 10/24/18 18:45 Ordered Medication Orders Citric Acid/Sodium Citrate (Bicitra Solution) 30 ml PO ONETIME ONE Stop: 10/24/18 19:47 Cefazolin Sodium/Dextrose 2 gm (/ Premix) 50 mls @ 100 mls/hr IV ONETIME ONE Stop: 10/24/18 20:15 Lactated Ringer's (Ringers, Lactated) 1,000 mls @ 125 mls/hr IV ASDIRECTED TAMIKO Oxytocin/Lactated Ringer's (Pitocin In Lr 10 Units/1,000 Ml) 10 unit in 1,000 mls @ 100 mls/hr IV ASDIRECTED TAMIKO; Protocol Metoclopramide HCl (Reglan) 10 mg IVPUSH ONETIME ONE Stop: 10/24/18 19:47 Nalbuphine HCl (Nubain) 10 mg IVPUSH Q2H PRN PRN Reason: pain Sodium Chloride (Saline Flush) 10 ml FLUSH ASDIRECTED PRN PRN Reason: Keep Vein Open Assessment/Plan Comment:: 37 y/o at 38 5/7 wks who presents in early labor - will move to repeat . In clinic was 1 cm and 75% also -2. Now currently 2 cm 80% and -1. * Labs * Ancef OCTOR * NPO * Consent signed * Peds/Anesthesia to be made aware
--- NOTE | 2018-10-24 20:06 | PCM.OPNOTE ---
- General Post-Op/Procedure Note Date of Surgery/Procedure: 10/24/18 Operative Procedure(s): Repeat low transverse Findings: Significant amount of thickening of the fascia and scarring between the rectus and the fascia. Extremely thin lower uterine segment noted to be bulging into the abdomen. Baby boy in a vertex presentation. APGARS of 8 & 9. Weight of 7 lbs 7 oz. Normal appearance otherwise of the uterus, fallopian tubes and ovaries. Pre Op Diagnosis: 38 5/7 wks. Hx of x 2. labor - cervical change Post-Op Diagnosis: Same Anesthesia Technique: Spinal Primary Surgeon: Mirta Pedro Secondary Surgeon: Marlin Stapleton Anesthesia Provider: Matthew Perez Reason Field Coordinator Was Necessary: Speed, safety of procedure. Pathology: Cord blood collected. Placenta discarded Fluid Replacement, Intraop: 2,900 Output, Urine Amount: 75 EBL in mLs: 700 Complications: None Condition: Good Free Text/Narrative:: The risks, benefits, indications, potential complications, and alternatives were explained to the patient and informed consent obtained. After induction of anesthesia, the patient was placed in a supine position and then draped and prepped in the usual sterile manner. A Pfannenstiel incision was made and carried down through the subcutaneous tissue to the fascia. Fascial incision was made and extended transversely. The fascia was from the underlying rectus tissue superiorly and inferiorly. The peritoneum was identified and entered. Peritoneal incision was extended longitudinally. The utero-vesical peritoneal reflection was incised transversely and the bladder flap was bluntly freed from the lower uterine segment. As noted above lower uterine segment extremely thin. A low transverse uterine incision was made sharply with a scalpel and extended bluntly in a cephalocaudad direction. A baby boy was delivered from a vertex presentation with APGARS as above. After the umbilical cord was clamped and cut cord blood was obtained for evaluation. The placenta was removed intact and appeared normal. The uterus was exteriorized and cleared of clots. The uterine outline, tubes and ovaries appeared normal. The uterine incision was closed with running locked sutures of 0 Vicryl. The uterus was then placed back into the abdomen. Several interrupted sutures of 0 vicryl then placed along the hysterotomy in figure of eight fashion. Slight oozing noted from left aspect of hysterotomy and so Nestor Seal placed in this region. The infracolic gutters were cleared of blood clots. The fascia was then reapproximated with running sutures of 1 PDS. The subcutaneous tissue was irrigated with sterile warm normal saline, hemostasis obtained with cautery. This layer was closed with a running 0 vicryl suture as well. The skin was reapproximated with running Subcuticular 4-0 monocryl sutures. Instrument, sponge, and needle counts were correct prior the abdominal closure and at the conclusion of the case.
[2018-10-24] MEDS ORDERED: Bupivacaine 0.5% 30 ML SDV ONE (20:41)
[2018-10-24] MEDS ORDERED: Morphine PF 10 MG/10 ML SDV ONE (21:14)
[2018-10-24] MEDS ORDERED: ceFAZolin 1 GM Vial ONE (21:14)
[2018-10-24] MEDS ORDERED: Oxytocin 10 Units/1 ML SDV ONE (21:18)
[2018-10-24] MEDS ORDERED: Lactated Ringers 1,000 ML ONE (21:38)
[2018-10-24] MEDS ORDERED: Ketorolac 30 MG/ML SDV ONE (21:52)
[2018-10-24] MEDS ORDERED: diphenhydrAMINE 50 MG/ML SDV IVPUSH PRN ×2 (22:35→23:26)
--- NOTE | 2018-10-24 22:36 | PCM.POSTAN ---
POST ANESTHESIA ASSESSMENT - MENTAL STATUS Mental Status: Alert, Oriented - VITAL SIGNS Pulse Rate: 93 SaO2: 99 Resp Rate: 13 Blood Pressure: 111/74 Temperature: 36.5 C - RESPIRATORY Respiratory Status: Respiratory Rate WNL, Airway Patent, O2 Saturation Stable - CARDIOVASCULAR CV Status: Pulse Rate WNL, Blood Pressure Stable - GASTROINTESTINAL GI Status: No Symptoms - PAIN Pain Score: 0 - POST OP HYDRATION Hydration Status: Adequate & Stable - OBSERVATIONS Free Text/Narrative:: no anesthesia complications noted
--- NOTE | 2018-10-24 22:37 | PCM.PREANE ---
Preanesthetic Assessment - Anesthesia/Transfusion/Family Hx Anesthesia History: Prior Anesthesia Without Reaction Family History of Anesthesia Reaction: No Transfusion History: No Prior Transfusion(s) Intubation History: Unknown - Review of Systems General: No Symptoms Pulmonary: No Symptoms Cardiovascular: Dyspnea on Exertion Gastrointestinal: Abdominal Pain (labor) Neurological: No Symptoms Other: Reports: None - Physical Assessment NPO Status Date: 10/23/18 NPO Status Time: 00:00 Pulse: 93 O2 Sat by Pulse Oximetry: 99 Respiratory Rate: 13 Blood Pressure: 111/74 Temperature: 36.5 C Vital Signs: Last Vital Signs Temp 36.5 C 10/24/18 22:36 Pulse 93 10/24/18 22:36 Resp 13 10/24/18 22:36 BP 111/74 10/24/18 22:36 Pulse Ox 99 10/24/18 22:36 Height: 1.63 m Weight: 75.75 kg ASA Class: 2 Mental Status: Alert & Oriented x3 Airway Class: Mallampati = 1 Dentition: Reports: Normal Dentition Thyro-Mental Finger Breadths: 3 Mouth Opening Finger Breadths: 3 ROM/Head Extension: Full Lungs: Clear to Auscultation, Normal Respiratory Effort Cardiovascular: Regular Rate, Regular Rhythm - Lab Values: Laboratory Last Values WBC 13.40 K/mm3 (3.98-10.04) H 10/24/18 20:00 RBC 4.18 M/mm3 (3.98-5.22) 10/24/18 20:00 Hgb 13.0 gm/L (11.2-15.7) D 10/24/18 20:00 Hct 38.0 % (34.1-44.9) 10/24/18 20:00 MCV 90.9 fl (79.4-94.8) 10/24/18 20:00 MCH 31.1 pg (25.6-32.2) 10/24/18 20:00 MCHC 34.2 g/dl (32.2-35.5) 10/24/18 20:00 RDW Std Deviation 41.8 fL (36.4-46.3) 10/24/18 20:00 Plt Count 281 K/mm3 (182-369) D 10/24/18 20:00 MPV 10.1 fl (9.4-12.3) 10/24/18 20:00 RPR Non-reactive (NONREACTIVE) 10/24/18 20:00 Blood Type AB POSITIVE 10/24/18 20:00 Gel Antibody Screen Negative 10/24/18 20:00 - Allergies Allergies/Adverse Reactions: Allergies Allergy/AdvReac Type Severity Reaction Status Date / Time acetaminophen Allergy Hives Verified 10/24/18 18:30 [From Darvocet-N] hydrocodone Allergy Hives Verified 10/24/18 18:30 meperidine HCl [From Demerol] Allergy Hives Verified 10/24/18 18:30 propoxyphene napsylate Allergy Hives Verified 10/24/18 18:30 [From Darvocet-N] - Blood Blood Available: Yes Product(s) Available: PRBC - Anesthesia Plan Pre-Op Medication Ordered: Antacids - Acknowledgements Anesthesia Type Planned: Spinal Pt an Appropriate Candidate for the Planned Anesthesia: Yes Alternatives and Risks of Anesthesia Discussed w Pt/Guardian: Yes Pt/Guardian Understands and Agrees with Anesthesia Plan: Yes PreAnesthesia Questionnaire Respiratory History: Reports: Asthma Gastrointestinal History: Reports: GERD Genitourinary History: Reports: Pyelonephritis, 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 , 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, , Spontaneous Neurological History: Reports: Headaches, Chronic - Infectious Disease History Infectious Disease History: Reports: Shingles - Past Surgical History HEENT Surgical History: Reports: Tonsillectomy GI Surgical History: Reports: Appendectomy Female Surgical History: Reports: Breast Biopsy, Section (x2), D&C, Other (See Below) (Diagnostic laparoscopy) - SUBSTANCE USE Smoking Status *Q: Never Smoker Second Hand Smoke Exposure: No Recreational Drug Use History: No - HOME MEDS Home Medications: Home Meds Acetaminophen [Tylenol] 650 mg PO Q4H PRN tablet 04/29/17 [Rx] Docusate Sodium [Colace] 100 mg PO Q12H PRN #1 cap 04/29/17 [Rx] Ibuprofen [IJD: Ibuprofen] 600 mg PO Q6H PRN #1 tablet 04/29/17 [Rx] Ketorolac [Toradol] 10 mg PO Q6H #1 tablet 04/29/17 [Rx] Lanolin [Lansinoh HPA] 1 applic TOP ASDIRECTED PRN tube 04/29/17 [Rx] - CURRENT (IN HOUSE) MEDS Current Meds: Current Medications Diphenhydramine HCl (Benadryl) 25 mg IVPUSH Q6H PRN PRN Reason: Itching Lactated Ringer's (Ringers, Lactated) 1,000 mls @ 125 mls/hr IV ASDIRECTED [facility] Last Admin: 10/24/18 20:29 Dose: 999 mls/hr Oxytocin/Lactated Ringer's (Pitocin In Lr 10 Units/1,000 Ml) 10 unit in 1,000 mls @ 100 mls/hr IV ASDIRECTED [facility]; Protocol Nalbuphine HCl (Nubain) 10 mg IVPUSH Q2H PRN PRN Reason: pain Sodium Chloride (Saline Flush) 10 ml FLUSH ASDIRECTED PRN PRN Reason: Keep Vein Open Discontinued Medications Acetaminophen (Tylenol) 650 mg PO NOW ONE Stop: 10/24/18 18:55 Last Admin: 10/24/18 19:29 Dose: 650 mg Bupivacaine HCl (Marcaine 0.5%) Confirm Administered Dose 30 ml .ROUTE .STK-MED ONE Stop: 10/24/18 20:42 Cefazolin Sodium (Ancef) Confirm Administered Dose 2 gm .ROUTE .STK-MED ONE Stop: 10/24/18 21:15 Citric Acid/Sodium Citrate (Bicitra Solution) 30 ml PO ONETIME ONE Stop: 10/24/18 19:47 Last Admin: 10/24/18 20:30 Dose: 30 ml Cefazolin Sodium/Dextrose 2 gm (/ Premix) 50 mls @ 100 mls/hr IV ONETIME ONE Stop: 10/24/18 20:15 Lactated Ringer's (Ringers, Lactated) Confirm Administered Dose 1,000 mls @ as directed .ROUTE .STK-MED ONE Stop: 10/24/18 21:39 Ketorolac Tromethamine (Toradol) Confirm Administered Dose 30 mg .ROUTE .STK- MED ONE Stop: 10/24/18 21:53 Metoclopramide HCl (Reglan) 10 mg IVPUSH ONETIME ONE Stop: 10/24/18 19:47 Last Admin: 10/24/18 20:30 Dose: 10 mg Morphine Sulfate (Duramorph Pf) Confirm Administered Dose 10 mg .ROUTE .STK-MED ONE Stop: 10/24/18 21:15 Oxytocin (Pitocin) Confirm Administered Dose 10 unit .ROUTE .[facility] ONE Stop: 10/24/18 21:19
[2018-10-24] MEDS ORDERED: Lanolin 100% Cream 7 GM Tube TOP PRN (23:26)
[2018-10-24] MEDS ORDERED: Docusate Sodium 100 MG Cap PO PRN (23:26)
[2018-10-24] MEDS ORDERED: Acetaminophen/oxyCODONE 325-5 MG Tab PO PRN (23:26)
[2018-10-24] MEDS ORDERED: Dextrose 5%-Lactated Ringers 1,000 ML IV SCH (23:26)
[2018-10-25] MEDS: Ketorolac 30 MG/ML SDV IVPUSH SCH ×3 (05:32→16:29)
--- NOTE | 2018-10-25 06:37 | PCM.PNPP ---
- General Info Date of Service: 10/25/18 Functional Status: Reports: Pain Controlled, Tolerating Diet, Ambulating - Review of Systems General: Reports: No Symptoms Pulmonary: Reports: No Symptoms Cardiovascular: Reports: No Symptoms Gastrointestinal: Reports: No Symptoms Genitourinary: Reports: No Symptoms Musculoskeletal: Reports: No Symptoms Neurological: Reports: No Symptoms - Patient Data Vital Signs - Most Recent: Last Vital Signs Temp 36.3 C 10/25/18 03:10 Pulse 82 10/25/18 03:10 Resp 12 10/25/18 05:00 BP 117/65 10/25/18 03:10 Pulse Ox 99 10/25/18 05:00 Weight - Most Recent: 75.75 kg I&O - Last 24 Hours: Intake & Output 10/24/18 10/24/18 10/25/18 14:59 22:59 06:59 Intake Total 100 Output Total 75 550 Balance -75 -450 Lab Results - Last 24 Hours: Laboratory Results - last 24 hr 10/24/18 10/24/18 10/24/18 Range/Units 20:00 20:00 20:00 WBC 13.40 H (3.98-10.04) K/mm3 RBC 4.18 (3.98-5.22) M/mm3 Hgb 13.0 D (11.2-15.7) gm/L Hct 38.0 (34.1-44.9) % MCV 90.9 (79.4-94.8) fl MCH 31.1 (25.6-32.2) pg MCHC 34.2 (32.2-35.5) g/dl RDW Std Deviation 41.8 (36.4-46.3) fL Plt Count 281 D (182-369) K/mm3 MPV 10.1 (9.4-12.3) fl RPR Non-reactive (NONREACTIVE) Blood Type AB POSITIVE Gel Antibody Screen Negative 10/25/18 Range/Units 05:51 WBC 12.16 H (3.98-10.04) K/mm3 RBC 3.46 L (3.98-5.22) M/mm3 Hgb 10.7 L D (11.2-15.7) gm/L Hct 31.6 L (34.1-44.9) % MCV 91.3 (79.4-94.8) fl MCH 30.9 (25.6-32.2) pg MCHC 33.9 (32.2-35.5) g/dl RDW Std Deviation 39.9 (36.4-46.3) fL Plt Count 198 D (182-369) K/mm3 MPV 10.0 (9.4-12.3) fl RPR (NONREACTIVE) Blood Type Gel Antibody Screen Med Orders - Current: Current Medications Diphenhydramine HCl (Benadryl) 25 mg IVPUSH Q6H PRN PRN Reason: Itching Last Admin: 10/24/18 23:40 Dose: 25 mg Diphenhydramine HCl (Benadryl) 25 mg IVPUSH Q6H PRN PRN Reason: Itching or Nausea Docusate Sodium (Colace) 100 mg PO Q12H PRN PRN Reason: Constipation Emollient Ointment (Lansinoh Hpa) 0 gm TOP ASDIRECTED PRN PRN Reason: Sore Nipples Dextrose/Lactated Ringer's (Dextrose 5%-Lactated Ringers) 1,000 mls @ 125 mls/ hr IV ASDIRECTED [facility] Stop: 10/25/18 07:25 Last Admin: 10/24/18 23:34 Dose: 125 mls/hr Ibuprofen (Motrin) 600 mg PO Q6H PRN PRN Reason: mild pain or fever Ketorolac Tromethamine (Toradol) 30 mg IVPUSH Q6H [facility] Stop: 10/25/18 16:31 Last Admin: 10/25/18 05:32 Dose: 30 mg Oxycodone/Acetaminophen (Percocet 325-5 Mg) 2 tab PO Q4H PRN PRN Reason: Pain (moderate 4-6) Discontinued Medications Acetaminophen (Tylenol) 650 mg PO NOW ONE Stop: 10/24/18 18:55 Last Admin: 10/24/18 19:29 Dose: 650 mg Bupivacaine HCl (Marcaine 0.5%) Confirm Administered Dose 30 ml .ROUTE .STK-MED ONE Stop: 10/24/18 20:42 Cefazolin Sodium (Ancef) Confirm Administered Dose 2 gm .ROUTE .STK-MED ONE Stop: 10/24/18 21:15 Citric Acid/Sodium Citrate (Bicitra Solution) 30 ml PO ONETIME ONE Stop: 10/24/18 19:47 Last Admin: 10/24/18 20:30 Dose: 30 ml Cefazolin Sodium/Dextrose 2 gm (/ Premix) 50 mls @ 100 mls/hr IV ONETIME ONE Stop: 10/24/18 20:15 Lactated Ringer's (Ringers, Lactated) 1,000 mls @ 125 mls/hr IV ASDIRECTED [facility] Last Admin: 10/24/18 20:29 Dose: 999 mls/hr Oxytocin/Lactated Ringer's (Pitocin In Lr 10 Units/1,000 Ml) 10 unit in 1,000 mls @ 100 mls/hr IV ASDIRECTED [facility]; Protocol Lactated Ringer's (Ringers, Lactated) Confirm Administered Dose 1,000 mls @ as directed .ROUTE .STK-MED ONE Stop: 10/24/18 21:39 Ketorolac Tromethamine (Toradol) Confirm Administered Dose 30 mg .ROUTE .STK- MED ONE Stop: 10/24/18 21:53 Metoclopramide HCl (Reglan) 10 mg IVPUSH ONETIME ONE Stop: 10/24/18 19:47 Last Admin: 10/24/18 20:30 Dose: 10 mg Morphine Sulfate (Duramorph Pf) Confirm Administered Dose 10 mg .ROUTE .STK-MED ONE Stop: 10/24/18 21:15 Nalbuphine HCl (Nubain) 10 mg IVPUSH Q2H PRN PRN Reason: pain Oxytocin (Pitocin) Confirm Administered Dose 10 unit .ROUTE .STK-MED ONE Stop: 10/24/18 21:19 Sodium Chloride (Saline Flush) 10 ml FLUSH ASDIRECTED PRN PRN Reason: Keep Vein Open - Infant Interaction Infant Disposition, : [place] in Room with Family Interaction: Holding Infant Feeding: Breastfed ; Nursed Well Support Person: - Recovery Exam Fundal Tone: Firm Fundal Level: At Umbilicus Fundal Placement: Midline Lochia Amount: Small Lochia Color: Rubra/Red Perineum Description: Intact, Minimal Bruising/Swelling Bladder Status: Indwelling Catheter in Place Urinary Elimination: Indwelling Catheter - Exam General: Alert, Oriented, Cooperative Lungs: Clear to Auscultation, Normal Respiratory Effort Cardiovascular: Regular Rate, Regular Rhythm GI/Abdominal Exam: Soft, Tender (appropriate post op) Extremities: Normal Inspection Skin: Warm, Dry, Intact Wound/Incisions: Drainage (on dressing, replaced ) - Problem List & Annotations (1) 38 weeks gestation of SNOMED Code(s): 19112454 Code(s): Z3A.38 - 38 WEEKS GESTATION OF Status: Acute Current Visit: No (2) History of SNOMED Code(s): 863536279 Code(s): Z98.891 - HISTORY OF UTERINE SCAR FROM PREVIOUS SURGERY Status: Acute Current Visit: No (3) Normal labor SNOMED Code(s): 42110697 Code(s): O80 - ENCOUNTER FOR FULL-TERM UNCOMPLICATED DELIVERY; Z37.9 - OUTCOME OF DELIVERY, UNSPECIFIED Status: Acute Current Visit: No (4) S/P repeat low transverse SNOMED Code(s): 421768045, 30052720, 421192508, 524189609, 444455108 Code(s): Z98.891 - HISTORY OF UTERINE SCAR FROM PREVIOUS SURGERY Status: Acute Current Visit: No - Problem List Review Problem List Initiated/Reviewed/Updated: Yes - My Orders Last 24 Hours: My Active Orders 10/24/18 18:45 Vaginal Exam [RC] PRN Resuscitation Status Routine 10/24/18 19:46 Heart Tones [RC] PER UNIT ROUTINE Vital Signs [RC] Q4HR 10/24/18 23:26 Activity as Tolerated [RC] .Routine Antiembolic Devices [RC] PER UNIT ROUTINE Communication Order [RC] PER UNIT ROUTINE Communication Order [RC] PER UNIT ROUTINE Intake and Output [RC] Q4HR May Shower [RC] PER UNIT ROUTINE Notify Provider Intake and Out [RC] ASDIRECTED RT Incentive Spirometry [RC] Q2HWA Vital Signs [RC] PER UNIT ROUTINE Acetaminophen/oxyCODONE [Percocet 325-5 MG] 2 tab PO Q4H PRN Dextrose 5%-Lactated Ringers 1,000 ml IV ASDIRECTED Docusate Sodium [Colace] 100 mg PO Q12H PRN Lanolin [Lansinoh HPA] See Dose Instructions TOP ASDIRECTED PRN diphenhydrAMINE [Benadryl] 25 mg IVPUSH Q6H PRN Assess Lochia [WOMSER] Per Unit Routine Assess Uterine Involution [WOMSER] Per Unit Routine Breast Pump [WOMSER] Per Unit Routine Heat Therapy [OM.PC] Per Unit Routine Peripheral IV Discontinue [OM.PC] Routine Sequential Compression Device [OM.PC] Per Unit Routine 10/24/18 Breakfast Regular Diet [DIET] 10/25/18 04:30 Ketorolac [Toradol] 30 mg IVPUSH Q6H 10/25/18 22:30 Ibuprofen [Motrin] 600 mg PO Q6H PRN 10/25/18 22:33 Urinary Catheter Removal [RC] Per Unit Routine - Assessment Assessment:: 37 y/o now POD#1 from [facility]LTCS at 38 5/7 wks after onset of labor - Plan Plan:: S/p RLTCS * Routine cares * Encourage breast feeding * Discharge home in 1-2 days
--- NOTE | 2018-10-25 09:59 | PCM48HPAN ---
Post Anesthesia Note - EVALUATION WITHIN 48HRS OF ANESTHETIC Vital Signs in Normal Range: Yes Patient Participated in Evaluation: Yes Respiratory Function Stable: Yes Airway Patent: Yes Cardiovascular Function Stable: Yes Hydration Status Stable: Yes Pain Control Satisfactory: Yes Nausea and Vomiting Control Satisfactory: Yes Mental Status Recovered: Yes Pulse Rate: 75 Resp Rate: 14 Temperature: 99.3 F Blood Pressure: 115/72
[2018-10-25] MEDS: Acetaminophen 325 MG Tab PO PRN (14:15)
[2018-10-25] MEDS: Ibuprofen 600 MG Tab PO PRN (22:19)
[2018-10-26] MEDS: Ibuprofen 600 MG Tab PO PRN ×3 (06:22→20:05)
--- NOTE | 2018-10-26 10:03 | PCM.PNPP ---
- General Info Date of Service: 10/26/18 Functional Status: Reports: Pain Controlled - Review of Systems General: Reports: No Symptoms HEENT: Reports: No Symptoms Pulmonary: Reports: No Symptoms Cardiovascular: Reports: No Symptoms Gastrointestinal: Reports: No Symptoms Genitourinary: Reports: No Symptoms Musculoskeletal: Reports: No Symptoms Skin: Reports: No Symptoms Neurological: Reports: No Symptoms Psychiatric: Reports: No Symptoms - General Info Date of Service: 10/26/18 - Patient Data Vital Signs - Most Recent: Last Vital Signs Temp 37.1 C 10/26/18 08:54 Pulse 79 10/26/18 08:54 Resp 14 10/26/18 08:54 BP 119/66 10/26/18 08:54 Pulse Ox 94 L 10/26/18 08:54 Weight - Most Recent: 75.75 kg I&O - Last 24 Hours: Intake & Output 10/25/18 10/26/18 10/26/18 22:59 06:59 14:59 Intake Total 120 Output Total 1700 Balance -1580 Med Orders - Current: Current Medications Acetaminophen (Tylenol) 650 mg PO Q4H PRN PRN Reason: Pain Last Admin: 10/25/18 14:15 Dose: 650 mg Diphenhydramine HCl (Benadryl) 25 mg IVPUSH Q6H PRN PRN Reason: Itching or Nausea Docusate Sodium (Colace) 100 mg PO Q12H PRN PRN Reason: Constipation Emollient Ointment (Lansinoh Hpa) 0 gm TOP ASDIRECTED PRN PRN Reason: Sore Nipples Ibuprofen (Motrin) 600 mg PO Q6H PRN PRN Reason: mild pain or fever Last Admin: 10/26/18 06:22 Dose: 600 mg Discontinued Medications Acetaminophen (Tylenol) 650 mg PO NOW ONE Stop: 10/24/18 18:55 Last Admin: 10/24/18 19:29 Dose: 650 mg Bupivacaine HCl (Marcaine 0.5%) Confirm Administered Dose 30 ml .ROUTE .STK-MED ONE Stop: 10/24/18 20:42 Cefazolin Sodium (Ancef) Confirm Administered Dose 2 gm .ROUTE .STK-MED ONE Stop: 10/24/18 21:15 Citric Acid/Sodium Citrate (Bicitra Solution) 30 ml PO ONETIME ONE Stop: 10/24/18 19:47 Last Admin: 10/24/18 20:30 Dose: 30 ml Diphenhydramine HCl (Benadryl) 25 mg IVPUSH Q6H PRN PRN Reason: Itching Last Admin: 10/24/18 23:40 Dose: 25 mg Cefazolin Sodium/Dextrose 2 gm (/ Premix) 50 mls @ 100 mls/hr IV ONETIME ONE Stop: 10/24/18 20:15 Lactated Ringer's (Ringers, Lactated) 1,000 mls @ 125 mls/hr IV ASDIRECTED [facility] Last Admin: 10/24/18 20:29 Dose: 999 mls/hr Oxytocin/Lactated Ringer's (Pitocin In Lr 10 Units/1,000 Ml) 10 unit in 1,000 mls @ 100 mls/hr IV ASDIRECTED [facility]; Protocol Lactated Ringer's (Ringers, Lactated) Confirm Administered Dose 1,000 mls @ as directed .ROUTE .STK-MED ONE Stop: 10/24/18 21:39 Dextrose/Lactated Ringer's (Dextrose 5%-Lactated Ringers) 1,000 mls @ 125 mls/ hr IV ASDIRECTED [facility] Stop: 10/25/18 07:25 Last Admin: 10/24/18 23:34 Dose: 125 mls/hr Ketorolac Tromethamine (Toradol) Confirm Administered Dose 30 mg .ROUTE .STK- MED ONE Stop: 10/24/18 21:53 Ketorolac Tromethamine (Toradol) 30 mg IVPUSH Q6H [facility] Stop: 10/25/18 16:31 Last Admin: 10/25/18 16:29 Dose: 30 mg Metoclopramide HCl (Reglan) 10 mg IVPUSH ONETIME ONE Stop: 10/24/18 19:47 Last Admin: 10/24/18 20:30 Dose: 10 mg Morphine Sulfate (Duramorph Pf) Confirm Administered Dose 10 mg .ROUTE .STK-MED ONE Stop: 10/24/18 21:15 Nalbuphine HCl (Nubain) 10 mg IVPUSH Q2H PRN PRN Reason: pain Oxycodone/Acetaminophen (Percocet 325-5 Mg) 2 tab PO Q4H PRN PRN Reason: Pain (moderate 4-6) Oxytocin (Pitocin) Confirm Administered Dose 10 unit .ROUTE .STK-MED ONE Stop: 10/24/18 21:19 Sodium Chloride (Saline Flush) 10 ml FLUSH ASDIRECTED PRN PRN Reason: Keep Vein Open - Interaction Disposition, : to Nursery Infant Interaction: Holding Infant Feeding: Breastfed ; Nursed Well Support Person: - Recovery Exam Fundal Tone: Firm Fundal Level: 2 Fingerbreadths Below Umbilicus Fundal Placement: Midline Lochia Amount: Small Lochia Color: Rubra/Red Perineum Description: Intact, Minimal Bruising/Swelling Episiotomy/Laceration: None Bladder Status: Voiding Urinary Elimination: Other (see below) Other Urinary Elimination, : urinary catheter removed at 1900 - Problem List Review Problem List Initiated/Reviewed/Updated: Yes - My Orders Last 24 Hours: My Active Orders 10/25/18 13:56 Acetaminophen [Tylenol] 650 mg PO Q4H PRN - Assessment Assessment:: 37 y/o now POD#2 from [facility] at 38 5/7 wks after onset of labor - Plan Plan:: S/p RLTCS * Routine cares * Encourage breast feeding * Discharge home in 1 days
[2018-10-26] MEDS: Acetaminophen 325 MG Tab PO PRN ×2 (15:29→22:07)
[2018-10-27] MEDS: Ibuprofen 600 MG Tab PO PRN ×2 (02:25→10:05)
--- NOTE | 2018-10-27 08:07 | PCM.DCSUM1 ---
Discharge Summary - Hospital Course Diagnosis: Stroke: No - Discharge Data Discharge Date: 10/27/18 Discharge Disposition: Home, Self-Care 01 Condition: Good - Patient Summary/Data Operative Procedure(s) Performed: Repeat low transverse - Patient Instructions Diet: Usual Diet as Tolerated Activity: No Strenuous Activities Activity, Other: pelvic rest Driving: Do Not Drive Showering/Bathing: May Shower Notify Provider of: Fever, Increased Pain, Swelling and Redness, Drainage, Nausea and/or Vomiting - Discharge Plan *PRESCRIPTION DRUG MONITORING PROGRAM REVIEWED*: No *COPY OF PRESCRIPTION DRUG MONITORING REPORT IN PATIENT KERRI: No Home Medications: Home Meds Acetaminophen [Tylenol] 650 mg PO Q4H PRN tablet 04/29/17 [Rx] Docusate Sodium [Colace] 100 mg PO Q12H PRN #1 cap 04/29/17 [Rx] Ibuprofen [IJD: Ibuprofen] 600 mg PO Q6H PRN #1 tablet 04/29/17 [Rx] Ketorolac [Toradol] 10 mg PO Q6H #1 tablet 04/29/17 [Rx] Lanolin [Lansinoh HPA] 1 applic TOP ASDIRECTED PRN tube 04/29/17 [Rx] Referrals: Mirta Pedro MD [Primary Care Provider] - (1 week) - Discharge Summary/Plan Comment DC Time >30 min.: No - General Info Date of Service: 10/27/18 Functional Status: Reports: Pain Controlled - Review of Systems General: Reports: No Symptoms HEENT: Reports: No Symptoms Pulmonary: Reports: No Symptoms Cardiovascular: Reports: No Symptoms Gastrointestinal: Reports: No Symptoms Genitourinary: Reports: No Symptoms Musculoskeletal: Reports: No Symptoms Skin: Reports: No Symptoms Neurological: Reports: No Symptoms Psychiatric: Reports: No Symptoms - Patient Data Vitals - Most Recent: Last Vital Signs Temp 37.2 C 10/27/18 02:48 Pulse 78 10/27/18 02:48 Resp 17 10/27/18 02:48 BP 100/51 L 10/27/18 02:48 Pulse Ox 98 10/27/18 02:48 Weight - Most Recent: 75.75 kg Med Orders - Current: Current Medications Acetaminophen (Tylenol) 650 mg PO Q4H PRN PRN Reason: Pain Last Admin: 10/26/18 22:07 Dose: 650 mg Diphenhydramine HCl (Benadryl) 25 mg IVPUSH Q6H PRN PRN Reason: Itching or Nausea Docusate Sodium (Colace) 100 mg PO Q12H PRN PRN Reason: Constipation Emollient Ointment (Lansinoh Hpa) 0 gm TOP ASDIRECTED PRN PRN Reason: Sore Nipples Ibuprofen (Motrin) 600 mg PO Q6H PRN PRN Reason: mild pain or fever Last Admin: 10/27/18 02:25 Dose: 600 mg Discontinued Medications Acetaminophen (Tylenol) 650 mg PO NOW ONE Stop: 10/24/18 18:55 Last Admin: 10/24/18 19:29 Dose: 650 mg Bupivacaine HCl (Marcaine 0.5%) Confirm Administered Dose 30 ml .ROUTE .STK-MED ONE Stop: 10/24/18 20:42 Cefazolin Sodium (Ancef) Confirm Administered Dose 2 gm .ROUTE .STK-MED ONE Stop: 10/24/18 21:15 Citric Acid/Sodium Citrate (Bicitra Solution) 30 ml PO ONETIME ONE Stop: 10/24/18 19:47 Last Admin: 10/24/18 20:30 Dose: 30 ml Diphenhydramine HCl (Benadryl) 25 mg IVPUSH Q6H PRN PRN Reason: Itching Last Admin: 10/24/18 23:40 Dose: 25 mg Cefazolin Sodium/Dextrose 2 gm (/ Premix) 50 mls @ 100 mls/hr IV ONETIME ONE Stop: 10/24/18 20:15 Lactated Ringer's (Ringers, Lactated) 1,000 mls @ 125 mls/hr IV ASDIRECTED [facility] Last Admin: 10/24/18 20:29 Dose: 999 mls/hr Oxytocin/Lactated Ringer's (Pitocin In Lr 10 Units/1,000 Ml) 10 unit in 1,000 mls @ 100 mls/hr IV ASDIRECTED [facility]; Protocol Lactated Ringer's (Ringers, Lactated) Confirm Administered Dose 1,000 mls @ as directed .ROUTE .STK-MED ONE Stop: 10/24/18 21:39 Dextrose/Lactated Ringer's (Dextrose 5%-Lactated Ringers) 1,000 mls @ 125 mls/ hr IV ASDIRECTED [facility] Stop: 10/25/18 07:25 Last Admin: 10/24/18 23:34 Dose: 125 mls/hr Ketorolac Tromethamine (Toradol) Confirm Administered Dose 30 mg .ROUTE .STK- MED ONE Stop: 10/24/18 21:53 Ketorolac Tromethamine (Toradol) 30 mg IVPUSH Q6H [facility] Stop: 10/25/18 16:31 Last Admin: 10/25/18 16:29 Dose: 30 mg Metoclopramide HCl (Reglan) 10 mg IVPUSH ONETIME ONE Stop: 10/24/18 19:47 Last Admin: 10/24/18 20:30 Dose: 10 mg Morphine Sulfate (Duramorph Pf) Confirm Administered Dose 10 mg .ROUTE .STK-MED ONE Stop: 10/24/18 21:15 Nalbuphine HCl (Nubain) 10 mg IVPUSH Q2H PRN PRN Reason: pain Oxycodone/Acetaminophen (Percocet 325-5 Mg) 2 tab PO Q4H PRN PRN Reason: Pain (moderate 4-6) Oxytocin (Pitocin) Confirm Administered Dose 10 unit .ROUTE .STK-MED ONE Stop: 10/24/18 21:19 Sodium Chloride (Saline Flush) 10 ml FLUSH ASDIRECTED PRN PRN Reason: Keep Vein Open - Exam General: Reports: Alert, Oriented HEENT: Reports: Pupils Equal, Pupils Reactive, EOMI, Mucous Membr. Moist/[place] Neck: Reports: Supple Lungs: Reports: Clear to Auscultation, Normal Respiratory Effort Cardiovascular: Reports: Regular Rate, Regular Rhythm GI/Abdominal Exam: Normal Bowel Sounds, Soft, Non-Tender, No Organomegaly, No Distention, No Abnormal Bruit, No Mass, Pelvis Stable (Female) Exam: Normal External Exam, Normal Speculum Exam, Normal Bimanual Exam Back Exam: Reports: Normal Inspection, Full Range of Motion Extremities: Normal Inspection, Normal Range of Motion, Non-Tender, No Pedal Edema, Normal Capillary Refill Skin: Reports: Warm, Dry, Intact Wound/Incisions: Reports: Healing Well Neurological: Reports: No New Focal Deficit Psy/Mental Status: Reports: Alert, Normal Affect, Normal Mood
[2018-10-27 12:59] VITALS: BP 118/75
== END 2018-10-27 11:40 | disposition home or self-care (01) | DRG 540 ==
LOC: JD.OBCHECK 18:14 → JD.OB 18:18 → JD.OBCHECK 19:46 → JD.OB 20:40 → OBSVTOIN 21:44 → JD.OB 21:50
PROVIDERS: ADMIT Obstetrics & Gynecology; ATTEND Obstetrics & Gynecology
PROC: 10D00Z1 Extraction of Products of Conception, Low, Open Approach (ICD-10-PCS; principal; 2018-10-24)
DX: O34.211 Maternal care for low transverse scar from previous cesarean delivery (principal); Z3A.38 38 weeks gestation of pregnancy; Z37.0 Single live birth
CPT/HCPCS: 01961; 36415; 59025; 85027; 86592; 86850; 86900; 86901; A9270-GY; J0690; J1200; J1885; J2270; J2590; J2765; J3490; J7042; J7120

== ENCOUNTER 2023-08-07 06:30 | Day surgery (SDC) | payer BC ==
[~2023-08-07 06:30] MED LIST: Dexamethasone 4 MG/ML 5 ML MDV ONE; Lactated Ringers 1,000 ML ONE; Lidocaine 1% 4 ML ONE; Midazolam 1 MG/ML 2 ML SDV ONE; Ondansetron 4 MG/2 ML SDV ONE; Propofol 200 MG/20 ML SDV ONE; Rocuronium 50 MG/5 ML Vial ONE; ceFAZolin 2 GM Vial ONE; dexmedeTOMIDine HCl 200 MCG/2 ML SDV ONE; fentaNYL 250 MCG/5 ML SDV ONE
[2023-08-07] MEDS: Lactated Ringers 1,000 ML IV SCH (06:45)
[2023-08-07 07:12] LABS: BASOPHILS PERCENT AUTO 0.7 % (0.0-1.0); EOSINOPHILS ABSOLUTE AUTO 0.1 K/mm3 (0.0-0.4); EOSINOPHILS PERCENT AUTO 2.3 % (0.0-6.0); HEMATOCRIT 37.9 % (37.0-47.0); HEMOGLOBIN 13.3 gm/dl (12.0-16.0); IMMATURE GRAN ABSOLUTE AUTO 0.03 K/mm3 (0.00-0.05); IMMATURE GRAN PERCENT AUTO 0.5 % (0.0-0.4); LYMPHOCYTES ABSOLUTE AUTO 1.6 K/mm3 (1.0-4.8); LYMPHOCYTES PERCENT AUTO 27.7 % (24.0-44.0); MEAN CORPUSCULAR HEMOGLOBIN 30.9 pg (28.0-32.0); MEAN CORPUSCULAR HGB CONC 35.1 g/dl (32.0-36.0); MEAN CORPUSCULAR VOLUME 87.9 fl (83.0-99.0); MEAN PLATELET VOLUME 9.1 fl (9.4-12.3); MONOCYTES ABSOLUTE AUTO 0.4 K/mm3 (0.0-0.8); MONOCYTES PERCENT AUTO 7.3 % (0.0-8.0); NEUTROPHILS ABSOLUTE AUTO 3.5 K/mm3 (1.8-7.7); NEUTROPHILS PERCENT AUTO 61.5 % (41.0-71.0); PLATELET COUNT,PLT 287 K/mm3 (150-400); RED BLOOD CELL COUNT 4.31 M/mm3 (4.10-5.30); WHITE BLOOD CELL COUNT,WBC 5.75 K/mm3 (3.9-11.3)
[2023-08-07] MEDS ORDERED: Sodium Chloride 0.9% 10 ML Syringe FLUSH PRN (07:12)
[2023-08-07] MEDS ORDERED: fentaNYL 100 MCG/2 ML SDV IVPUSH PRN (07:16)
[2023-08-07] MEDS ORDERED: Ondansetron 4 MG/2 ML SDV IVPUSH PRN (07:16)
[2023-08-07] MEDS ORDERED: HYDROmorphone 0.5 MG/0.5 ML Syringe IVPUSH PRN (07:16)
[2023-08-07] MEDS: Scopalamine 1mg/3day Transdermal Patch TRDERM SCH (07:24)
[2023-08-07 07:26] LABS: ANION GAP 14.1 (5-15); BUN/CREATININE RATIO 16.7 (14-18); CALCIUM 8.9 mg/dL (8.5-10.1); CREATININE 0.9 mg/dL (0.55-1.02); EST CRCL DRUG DOSING (CG) 71.75 mL/min; POTASSIUM,K 4.1 mEq/L (3.5-5.1)
[2023-08-07] MEDS ORDERED: diphenhydrAMINE 50 MG/ML SDV ONE (08:09)
[2023-08-07] MEDS ORDERED: Ketorolac 30 MG/ML SDV ONE (08:13)
[2023-08-07] MEDS: Bupivacaine 0.25% 10 ML SDV ONE (08:41)
[2023-08-07] MEDS: EPINEPHrine 1 MG/ML SDV ONE (08:43)
[2023-08-07] MEDS: Bupivacaine 0.5% 10 ML SDV ONE (08:44)
[2023-08-07] MEDS ORDERED: ePHEDrine 50 MG/ML SDV ONE (08:57)
[2023-08-07] MEDS ORDERED: Sodium Chloride 0.9% 10 ML Syringe FLUSH SCH (09:00)
[2023-08-07] MEDS ORDERED: Neostigmine Methylsulfate 10 MG/10 ML MDV ONE (09:00)
[2023-08-07] MEDS: Acetaminophen/oxyCODONE 325-5 MG Tab PO PRN ×2 (11:11→15:02)
[2023-08-07 16:10] VITALS: BP 110/80; PULSE 88
== END 2023-08-07 16:10 | disposition home or self-care (01) ==
LOC: JD.SDS 06:30
PROVIDERS: ATTEND Obstetrics & Gynecology
DX: N80.03 Adenomyosis of the uterus (principal); N72 Inflammatory disease of cervix uteri; N83.8 Other noninflammatory disorders of ovary, fallopian tube and broad ligament; J45.30 Mild persistent asthma, uncomplicated; K21.9 Gastro-esophageal reflux disease without esophagitis; Z79.899 Other long term (current) drug therapy; Z88.5 Allergy status to narcotic agent; Z88.8 Allergy status to other drugs, medicaments and biological substances
CPT/HCPCS: 36415; 58552; 80048; 81025; 85025; 86850; 86900; 86901; A9270; J0171; J0665; J0690; J1100; J1200; J1596; J1885; J2250; J2405; J2704; J2710; J3010; J7120; 00940; J3490

== ENCOUNTER 2023-11-11 17:41 | Emergency (ER) | payer BC ==
[2023-11-11] MEDS: Ondansetron 4 MG/2 ML SDV IVPUSH ONE ×2 (19:20→22:10)
[2023-11-11] MEDS: Ketorolac 30 MG/ML SDV IVPUSH ONE (19:20)
[2023-11-11] MEDS: Sodium Chloride 0.9% 10 ML Syringe FLUSH PRN (19:31)
[2023-11-11] MEDS ORDERED: fentaNYL 100 MCG/2 ML SDV IVPUSH PRN (21:54)
[2023-11-11] MEDS: oxyCODONE 5 MG Tab PO ONE (21:59)
[2023-11-11] MEDS: diphenhydrAMINE 50 MG/ML SDV IVPUSH ONE (22:01)
[2023-11-11] MEDS: fentaNYL 100 MCG/2 ML SDV IVPUSH PRN (22:11)
[2023-11-11] MEDS: Propofol 200 MG/20 ML SDV IVPUSH ONE (22:11)
[2023-11-11] MEDS: Ondansetron 4 MG/2 ML SDV ONE (22:27)
[2023-11-11] MEDS: Ketamine 200 MG/20 ML MDV IVPUSH ONE (22:53)
[2023-11-11] MEDS: Ketamine 200 MG/20 ML MDV ONE (23:00)
[2023-11-11] MEDS: Lidocaine 1% 20 ML MDV INJECT ONE (23:01)
[2023-11-12 02:23] VITALS: BP 115/91; PULSE 77
== END 2023-11-12 00:10 | disposition home or self-care (01) ==
LOC: JD.ED 17:41
DX: S52.572A Other intraarticular fracture of lower end of left radius, initial encounter for closed fracture (principal); J45.909 Unspecified asthma, uncomplicated; K21.9 Gastro-esophageal reflux disease without esophagitis; Z90.49 Acquired absence of other specified parts of digestive tract; Z90.710 Acquired absence of both cervix and uterus; Z86.16 Personal history of COVID-19; Z79.899 Other long term (current) drug therapy; Z88.5 Allergy status to narcotic agent; Z88.6 Allergy status to analgesic agent; W17.89XA Other fall from one level to another, initial encounter; Y92.000 Kitchen of unspecified non-institutional (private) residence as the place of occurrence of the external cause
CPT/HCPCS: 25605; 73090; 73100; 73110; 96374; 96375; 96376; 99152; 99283; A9270; J1200; J1885; J2405; J2704; J3010; J3490; 99284

== ENCOUNTER → 2023-11-13 | Day surgery (SDC) | payer BC ==
[~2023-11-13] MED LIST changes: -Dexamethasone 4 MG/ML 5 ML MDV ONE; -Lactated Ringers 1,000 ML ONE; -Lidocaine 1% 4 ML ONE; -Ondansetron 4 MG/2 ML SDV ONE; -Propofol 200 MG/20 ML SDV ONE; -Rocuronium 50 MG/5 ML Vial ONE; -ceFAZolin 2 GM Vial ONE; -dexmedeTOMIDine HCl 200 MCG/2 ML SDV ONE; +fentaNYL 100 MCG/2 ML SDV ONE; -fentaNYL 250 MCG/5 ML SDV ONE
[2023-11-13 11:00] VITALS: BP 134/82; PULSE 86
[2023-11-13] MEDS: Lactated Ringers 1,000 ML IV SCH (11:00)
== END ==
LOC: JD.SDS 10:28
PROVIDERS: ATTEND Orthopaedic Surgery
DX: S52.532A Colles' fracture of left radius, initial encounter for closed fracture (principal); X58.XXXA Exposure to other specified factors, initial encounter; Z53.8 Procedure and treatment not carried out for other reasons
CPT/HCPCS: 87641; J2250; J3010; J7120

== ENCOUNTER 2023-11-19 09:15 | Day surgery (SDC) | payer BC ==
[~2023-11-19 09:15] MED LIST changes: -Midazolam 1 MG/ML 2 ML SDV ONE; +Ropivacaine 0.5% 5 MG/ML 30 ML SDV ONE; +Sodium Chloride 0.9% 10 ML Syringe FLUSH PRN; +Sodium Chloride 0.9% 10 ML Syringe FLUSH SCH; -fentaNYL 100 MCG/2 ML SDV ONE
[2023-11-19] MEDS: Lactated Ringers 1,000 ML IV SCH (09:43)
[2023-11-19] MEDS ORDERED: fentaNYL 100 MCG/2 ML SDV ONE ×3 (09:59→12:14)
[2023-11-19] MEDS ORDERED: Propofol 200 MG/20 ML SDV ONE ×4 (09:59→12:28)
[2023-11-19] MEDS ORDERED: Midazolam 1 MG/ML 2 ML SDV ONE (09:59)
[2023-11-19] MEDS ORDERED: Lidocaine 1% 2 ML ONE (10:00)
[2023-11-19] MEDS ORDERED: Ondansetron 4 MG/2 ML SDV ONE (10:00)
[2023-11-19] MEDS ORDERED: Ketorolac 30 MG/ML SDV ONE (10:00)
[2023-11-19] MEDS ORDERED: Rocuronium 50 MG/5 ML Vial ONE (10:00)
[2023-11-19] MEDS ORDERED: ceFAZolin 2 GM Vial ONE (10:04)
[2023-11-19] MEDS: Scopalamine 1mg/3day Transdermal Patch TRDERM ONE (11:19)
[2023-11-19] MEDS ORDERED: dexmedeTOMIDine HCl 200 MCG/2 ML SDV ONE (11:52)
[2023-11-19] MEDS ORDERED: Lactated Ringers 1,000 ML ONE (12:15)
[2023-11-19] MEDS ORDERED: Dexamethasone 4 MG/ML 5 ML MDV ONE (12:26)
[2023-11-19] MEDS ORDERED: Acetaminophen 325 MG Tab PO PRN (13:08)
[2023-11-19] MEDS: Scopalamine 1mg/3day Transdermal Patch TOP ONE (13:21)
[2023-11-19] MEDS ORDERED: fentaNYL 100 MCG/2 ML SDV IVPUSH PRN (13:22)
[2023-11-19 15:26] VITALS: BP 138/70; PULSE 72
== END 2023-11-19 15:10 | disposition home or self-care (01) ==
LOC: JD.SDS 09:15
PROVIDERS: ATTEND Orthopaedic Surgery
DX: S52.532A Colles' fracture of left radius, initial encounter for closed fracture (principal); K21.9 Gastro-esophageal reflux disease without esophagitis; Z79.899 Other long term (current) drug therapy; Z88.5 Allergy status to narcotic agent; X58.XXXA Exposure to other specified factors, initial encounter
CPT/HCPCS: 25607; 64415; 76000; A9270; C1713; C1776; J0690; J1100; J1885; J2250; J2405; J2704; J2795; J3010; J7120; 01830; J3490